=== PATIENT | female | born 1970 | race Caucasian/White ===

== ENCOUNTER → 2016-03-22 | Outpatient (REF) | payer OTHER, MEDICAID ==
[~2016-03-22] MED LIST: ACET500C PO; COLA1CAP PO; CYCL10TA PO; EFFE75CA75 PO; MIRA3350 PO; PRIM50TA2 PO; PROT1TAB2 PO; SERO1TAB2 PO; SERO1TAB3 PO; SUBO4MIS PO
[2016-03-22 16:19] LABS: ALBUMIN 3.6 GM/DL (3.2-5.2); ALBUMIN/GLOBULIN RATIO 1.38 (1.00-1.93); ALKALINE PHOSPHATASE 63 U/L (45-117); ALT/SGPT 20 U/L (12-78); ANION GAP 6 MEQ/L (8-16); AST/SGOT 24 U/L (15-37); BILIRUBIN,TOTAL 0.5 MG/DL (0.2-1.0); BLOOD UREA NITROGEN 5 MG/DL (7-18); CALCIUM LEVEL 8.8 MG/DL (8.5-10.1); CARBON DIOXIDE LEVEL 36 MEQ/L (21-32); CHLORIDE LEVEL 96 MEQ/L (98-107); FREE T4 0.82 NG/DL (0.76-1.46); GLOMERULAR FILTRATION RATE > 60.0 (>58); GLUCOSE, FASTING 81 MG/DL (70-105); SODIUM LEVEL 138 MEQ/L (136-145); TOTAL PROTEIN 6.2 GM/DL (6.4-8.2)
== END ==
LOC: M SFHCPLAZ 14:04
PROVIDERS: ATTEND Nurse Practitioner Adult Health
DX: E87.6 Hypokalemia (principal); F41.0 Panic disorder [episodic paroxysmal anxiety]

== ENCOUNTER → 2016-04-06 | Outpatient (CLI) | payer OTHER, MEDICAID ==
[~2016-04-06] MED LIST changes: -PRIM50TA2 PO; +PRIM50TA6 PO
== END ==
LOC: M PAIN 14:40
PROVIDERS: ATTEND Nurse Practitioner Family
DX: M54.81 Occipital neuralgia (principal); M79.1 Myalgia; G43.009 Migraine without aura, not intractable, without status migrainosus; M51.26 Other intervertebral disc displacement, lumbar region; F33.9 Major depressive disorder, recurrent, unspecified; F43.10 Post-traumatic stress disorder, unspecified; F41.9 Anxiety disorder, unspecified; F40.01 Agoraphobia with panic disorder; Z88.4 Allergy status to anesthetic agent; L23.0 Allergic contact dermatitis due to metals; Z79.899 Other long term (current) drug therapy; Z91.410 Personal history of adult physical and sexual abuse; Z91.5 Personal history of self-harm; Z87.891 Personal history of nicotine dependence; Z86.69 Personal history of other diseases of the nervous system and sense organs; Z86.59 Personal history of other mental and behavioral disorders; Z98.84 Bariatric surgery status

== ENCOUNTER → 2016-04-20 | Outpatient (REF) | payer OTHER | LOC: M LAB REF 16:20 | PROVIDERS: ATTEND Neurological Surgery | DX: Z01.818 Encounter for other preprocedural examination (principal) ==

== ENCOUNTER → 2016-04-24 | Outpatient (CLI) | payer OTHER, MEDICAID ==
[~2016-04-24] MED LIST changes: +BUPIVACAINE HCL 0.25% 10 ML VIAL As Ordered ONE; +BUPIVACAINE HCL 0.25% 30 ML VIAL As Ordered ONE; +BUSP15TA47 PO; +CYMB60CA3 PO; +GABA300C3 PO; +HYDR25TAB PO; +METH-107 PO; +TIZA4CAP3 PO; +TRIAMCINOLONE ACETONIDE SUSP 40 MG/ML VIAL (J3301) As Ordered ONE; +diazePAM 5 MG TAB As Ordered ONE; +oxyCODONE 5MG TAB As Ordered ONE
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
== END ==
LOC: M PAIN 09:40
PROVIDERS: ATTEND Anesthesiology
DX: G89.29 Other chronic pain (principal); M79.1 Myalgia; M54.2 Cervicalgia; M54.5 Low back pain; M25.511 Pain in right shoulder; M54.6 Pain in thoracic spine; M25.512 Pain in left shoulder; H81.09 Meniere's disease, unspecified ear; F32.9 Major depressive disorder, single episode, unspecified; F43.10 Post-traumatic stress disorder, unspecified; F40.01 Agoraphobia with panic disorder; F41.9 Anxiety disorder, unspecified; Z91.410 Personal history of adult physical and sexual abuse; F11.20 Opioid dependence, uncomplicated; Z79.899 Other long term (current) drug therapy; Z87.891 Personal history of nicotine dependence; Z88.6 Allergy status to analgesic agent; Z91.048 Other nonmedicinal substance allergy status; Z98.84 Bariatric surgery status
CPT/HCPCS: 20553; J3301

== ENCOUNTER → 2016-05-01 | Outpatient (CLI) | payer OTHER, MEDICAID ==
[~2016-05-01] MED LIST changes: -BUPIVACAINE HCL 0.25% 10 ML VIAL As Ordered ONE; -BUPIVACAINE HCL 0.25% 30 ML VIAL As Ordered ONE; -TRIAMCINOLONE ACETONIDE SUSP 40 MG/ML VIAL (J3301) As Ordered ONE; -diazePAM 5 MG TAB As Ordered ONE; -oxyCODONE 5MG TAB As Ordered ONE
--- NOTE | 2016-05-01 16:22 | REP ---
Clinical: Spondylosis . Comparison: 02/20/2016 . Technique: PA and lateral. Findings: The mediastinum and cardiac silhouette are normal. The lung downey are clear and without acute consolidation, effusion, or pneumothorax. Degenerative changes to the mid thoracic vertebral bodies with bridging osteophytes noted. Impression: 1. No acute cardiopulmonary process. Signed by Cooper Powell MD 05/01/2016 04:14 P
[2016-05-01 17:24] LABS: BASO # 0.1 K/mm3 (0.0-0.2); BASO % 0.9 % (0.0-1.0); EOS % 0.6 % (0.0-3.0); LARGE UNSTAINED CELL # 0.2 K/mm3 (0.0-0.4); LARGE UNSTAINED CELL % 2.6 % (0.0-4.0); LYMPH # 1.9 K/mm3 (1.5-4.5); LYMPH % 29.5 % (24.0-44.0); MEAN CORPUSCULAR HEMOGLOBIN 29.4 pg (27.0-33.0); MEAN CORPUSCULAR HGB CONC 31.9 g/dl (32.0-36.5); MONO # 0.4 K/mm3 (0.0-0.8); MONO % 5.6 % (0.0-5.0); NEUTROPHILS # 3.9 K/mm3 (1.8-7.7); NEUTROPHILS % 60.8 % (36.0-66.0); PLATELET COUNT, AUTOMATED 332 k/mm3 (150-450); WHITE BLOOD COUNT 6.4 K/mm3 (4.0-10.0)
[2016-05-01 17:49] LABS: INR 0.9
[2016-05-01 18:39] LABS: ALBUMIN 3.7 GM/DL (3.2-5.2); ALBUMIN/GLOBULIN RATIO 1.16 (1.00-1.93); ALKALINE PHOSPHATASE 77 U/L (45-117); ALT/SGPT 14 U/L (12-78); ANION GAP 6 MEQ/L (8-16); AST/SGOT 21 U/L (15-37); BILIRUBIN,TOTAL 0.4 MG/DL (0.2-1.0); BLOOD UREA NITROGEN 4 MG/DL (7-18); CALCIUM LEVEL 9.3 MG/DL (8.5-10.1); CARBON DIOXIDE LEVEL 35 MEQ/L (21-32); CHLORIDE LEVEL 96 MEQ/L (98-107); CREATININE FOR GFR 0.91 MG/DL (0.55-1.02); GLOMERULAR FILTRATION RATE > 60.0 (>58); GLUCOSE, FASTING 90 MG/DL (70-105); POTASSIUM SERUM 4.5 MEQ/L (3.5-5.1); SODIUM LEVEL 137 MEQ/L (136-145); TOTAL PROTEIN 6.9 GM/DL (6.4-8.2)
--- NOTE | 2016-05-01 22:33 | ECGEPIP ---
Stationary ECG Study [facility] Test Date: 2016-05-01 Pat Name: GALEN PINEDA Department: Room: - Gender: F Pediatric Cns: MIRNA : 1970 Requested By: GLORIA Barakat Order Number: [id number] Reading MD: Javed Aaron Measurements Intervals [place] Rate: 69 P: 73 WY: 121 QRS: 82 QRSD: 90 T: 70 QT: 385 QTc: 413 Interpretive Statements SINUS RHYTHM, Minor nonspecific T-wave abnormalities. No significant change compared with 02/20/2016. Electronically Signed On 05-01-2016 22:33:24 EST by Javed Aaron
== END ==
LOC: M LAB 15:42
PROVIDERS: ATTEND Neurological Surgery
DX: M47.12 Other spondylosis with myelopathy, cervical region (principal)

== ENCOUNTER → 2016-05-08 | Outpatient (CLI) | payer OTHER ==
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
== END ==
LOC: M PAIN 10:40
PROVIDERS: ATTEND Nurse Practitioner Family
DX: Z09 Encounter for follow-up examination after completed treatment for conditions other than malignant neoplasm (principal); G89.29 Other chronic pain; G56.01 Carpal tunnel syndrome, right upper limb; M54.2 Cervicalgia; M79.1 Myalgia; F33.9 Major depressive disorder, recurrent, unspecified; F43.10 Post-traumatic stress disorder, unspecified; F41.0 Panic disorder [episodic paroxysmal anxiety]; F11.20 Opioid dependence, uncomplicated; Z88.6 Allergy status to analgesic agent; L23.0 Allergic contact dermatitis due to metals; Z79.899 Other long term (current) drug therapy; Z91.410 Personal history of adult physical and sexual abuse; Z91.5 Personal history of self-harm; Z87.891 Personal history of nicotine dependence; Z86.69 Personal history of other diseases of the nervous system and sense organs; Z98.84 Bariatric surgery status

== ENCOUNTER → 2016-05-09 | Day surgery (SDC) | payer OTHER ==
[~2016-05-09] VITALS: Ht 165.1 cm; Wt 49.4 kg
[~2016-05-09] MED LIST changes: +CEFUROXIME SODIUM 1.5 GM in D5W MINI-BAG PLUS 50 ML IV ONE; +LIDOCAINE 1% MDV 20ML VIAL ONE; +LIDOCAINE 1% SDV INJ 30 ML VIAL As Ordered ONE; +LIDOCAINE 2% INJ 100 MG/5 ML SDV (FOR ANES.) As Ordered ONE; +LR 1,000 ML IV SCH; +MIDAZOLAM INJ 2 MG/2 ML VIAL (J2250) As Ordered ONE; +NORCO, ANEXSIA 5/325MG TABLET (HYDROcodone/ACETAMINOPHEN) PO PRN; +ONDANSETRON 4MG/2ML VIAL (J2405) As Ordered ONE; +ONDANSETRON 4MG/2ML VIAL (J2405) IV PRN; +PROPOFOL 200 MG/20 ML VIAL As Ordered ONE; +ROPIvacaine 0.5% 30 ML INJECTION (J2795) ONE; +dexameTHASONE 10 MG/1 ML VIAL PRES.FREE (J1100) ONE; +dexameTHASONE 4 MG/ML 1ML VIAL (J1100) IV ONE; +fentaNYL 100 MCG/2 ML INJECTION (J3010) As Ordered ONE; +methylPREDNISolone SUSP 40 MG/ML (DEPO-medrol) VIAL (J1030) As Ordered ONE; +methylPREDNISolone SUSP 40 MG/ML (DEPO-medrol) VIAL (J1030) XX ONE
[2016-05-09 07:05] LABS: CONTROL LINE UCG INT CTR LINE PRESENT
[2016-05-09] MEDS: fentaNYL 100 MCG/2 ML INJECTION (J3010) IV PRN ×4 (09:00→09:25)
--- NOTE | 2016-05-09 10:54 | RO ---
DATE OF PROCEDURE: 05/09/2016 PREOPERATIVE DIAGNOSES: Right carpal tunnel. POSTPROCEDURE DIAGNOSIS: Right carpal tunnel. SURGEON: Guilherme Tse MD TEAM FOREMAN: LÓPEZ Flores ANESTHESIA: General. PROCEDURE: Release of right carpal tunnel. FINDINGS: Nodular hypertrophy on the flexor retinaculum and adhesions of the median nerve. ESTIMATED BLOOD LOSS: Negligible (tourniquet).
[2016-05-09 11:20] VITALS: BP 103/64
--- NOTE | 2016-05-09 12:57 | RO ---
DATE OF PROCEDURE: 05/09/2016 PREPROCEDURE DIAGNOSIS: Right carpal tunnel syndrome. POSTPROCEDURE DIAGNOSIS: Right carpal tunnel syndrome. PROCEDURE: Release of the right carpal tunnel. SURGEON: Dr. Guilherme Tse SPACE PHYSICIST: Teresa Galan PA-C ANESTHESIA: General. FINDINGS: Please see my office notes for detailed preoperative evaluation and discussions. DESCRIPTION OF PROCEDURE: The patient was seen in the preoperative area with her mother. The patient and her mother were aware of all options, risks, scope, expected outcome and sequel and complications of the proposed salvage procedure. The patient understood not all of her symptoms could be readily explained on her clinical and electrodiagnostic findings. Thus all may not be addressed. She understood the risk of surgery including but not limited to , persistence or worsening of symptoms and/or deficits, loss of vital bodily functions, failure of surgery, need for multiple surgeries, infection, bleeding, development of RSD, which was explained to her on a few occasions and/or any catastrophic sequel. She again claimed there was no way she can live with these symptoms and she is willing to take any or all risk for any possible benefit and she clearly understands the salvage nature of the procedure. After all matters pertaining to surgery, anesthesia and followup care were discussed with her and mother again, she was taken to the operating room after informed consent and at her request. Once in the operative room, general anesthesia was given by the anesthesia service as the patient and the anesthesia service mutually decided to have the procedure done under general anesthesia rather than Susana block. The area of surgery was prepped and draped in the usual sterile fashion and the right upper extremity was exsanguinated using Esmarch dressing and a tourniquet was applied at 250 mmHg. A skin incision was given distal to the wrist crease, along one of the palmar creases. Alveolar layer was reached and incised, cut edges of the blood vessels were coagulated with bipolar cautery. Tendons of the palmaris longus were . Thenar and hypothenar muscles were stripped off the flexor retinaculum which was then incised in its entirety. There was nodular hypertrophic defects off the reflex retinaculum which were indenting the median nerve, The median nerve had multiple superficial scarring and adhesions that were removed. The median nerve was infiltrated with 1 mL of 40 mg Depo-Medrol and closed in two layers. The patient tolerated the procedure satisfactorily and was transferred to the recovery room in stable condition. Operative findings were discussed with the patient's mother in the waiting room. Both the patient and her mother had followup instructions.
== END ==
LOC: M SDC 06:10
PROVIDERS: ATTEND Neurological Surgery
DX: G56.01 Carpal tunnel syndrome, right upper limb (principal); K21.9 Gastro-esophageal reflux disease without esophagitis; M50.321 Other cervical disc degeneration at C4-C5 level; M50.322 Other cervical disc degeneration at C5-C6 level; M50.323 Other cervical disc degeneration at C6-C7 level; G43.909 Migraine, unspecified, not intractable, without status migrainosus; M79.606 Pain in leg, unspecified; F41.9 Anxiety disorder, unspecified; F32.9 Major depressive disorder, single episode, unspecified; K90.9 Intestinal malabsorption, unspecified; H81.09 Meniere's disease, unspecified ear; G25.0 Essential tremor; Z79.899 Other long term (current) drug therapy; Z87.891 Personal history of nicotine dependence; Z79.82 Long term (current) use of aspirin; Z79.84 Long term (current) use of oral hypoglycemic drugs; Z98.84 Bariatric surgery status; F19.10 Other psychoactive substance abuse, uncomplicated; Z88.8 Allergy status to other drugs, medicaments and biological substances; Z91.09 Other allergy status, other than to drugs and biological substances
CPT/HCPCS: 64721; 84703; J0697; J1030; J1100; J2250; J2405; J2795; J3010

== ENCOUNTER → 2016-05-22 | Outpatient (CLI) | payer OTHER ==
[~2016-05-22] MED LIST changes: -CEFUROXIME SODIUM 1.5 GM in D5W MINI-BAG PLUS 50 ML IV ONE; -LIDOCAINE 1% MDV 20ML VIAL ONE; -LIDOCAINE 1% SDV INJ 30 ML VIAL As Ordered ONE; -LIDOCAINE 2% INJ 100 MG/5 ML SDV (FOR ANES.) As Ordered ONE; -LR 1,000 ML IV SCH; -MIDAZOLAM INJ 2 MG/2 ML VIAL (J2250) As Ordered ONE; -NORCO, ANEXSIA 5/325MG TABLET (HYDROcodone/ACETAMINOPHEN) PO PRN; -ONDANSETRON 4MG/2ML VIAL (J2405) As Ordered ONE; -ONDANSETRON 4MG/2ML VIAL (J2405) IV PRN; -PROPOFOL 200 MG/20 ML VIAL As Ordered ONE; -ROPIvacaine 0.5% 30 ML INJECTION (J2795) ONE; -dexameTHASONE 10 MG/1 ML VIAL PRES.FREE (J1100) ONE; -dexameTHASONE 4 MG/ML 1ML VIAL (J1100) IV ONE; -fentaNYL 100 MCG/2 ML INJECTION (J3010) As Ordered ONE; -methylPREDNISolone SUSP 40 MG/ML (DEPO-medrol) VIAL (J1030) As Ordered ONE; -methylPREDNISolone SUSP 40 MG/ML (DEPO-medrol) VIAL (J1030) XX ONE
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
== END ==
LOC: M PAIN 10:40
PROVIDERS: ATTEND Nurse Practitioner Family
DX: Z09 Encounter for follow-up examination after completed treatment for conditions other than malignant neoplasm (principal); G89.29 Other chronic pain; G56.01 Carpal tunnel syndrome, right upper limb; M54.2 Cervicalgia; M79.1 Myalgia; F32.9 Major depressive disorder, single episode, unspecified; F43.10 Post-traumatic stress disorder, unspecified; F41.0 Panic disorder [episodic paroxysmal anxiety]; F11.20 Opioid dependence, uncomplicated; Z79.1 Long term (current) use of non-steroidal anti-inflammatories (NSAID); L23.0 Allergic contact dermatitis due to metals; Z79.899 Other long term (current) drug therapy; Z91.410 Personal history of adult physical and sexual abuse; Z87.891 Personal history of nicotine dependence; Z91.5 Personal history of self-harm; Z79.891 Long term (current) use of opiate analgesic

== ENCOUNTER → 2016-06-19 | Outpatient (CLI) | payer OTHER ==
[~2016-06-19] MED LIST changes: -COLA1CAP PO; +COLA50CA5 PO; +GABA-282 PO; -GABA300C3 PO
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
== END | disposition home or self-care (01) ==
LOC: M PAIN 14:20
PROVIDERS: ATTEND Nurse Practitioner Family
DX: G89.29 Other chronic pain (principal); G56.01 Carpal tunnel syndrome, right upper limb; M54.2 Cervicalgia; M79.1 Myalgia; F41.9 Anxiety disorder, unspecified; F43.10 Post-traumatic stress disorder, unspecified; F33.9 Major depressive disorder, recurrent, unspecified; Z98.84 Bariatric surgery status; F11.21 Opioid dependence, in remission; Z88.8 Allergy status to other drugs, medicaments and biological substances; Z91.048 Other nonmedicinal substance allergy status; Z87.891 Personal history of nicotine dependence

== ENCOUNTER → 2016-07-31 | Outpatient (CLI) | payer OTHER ==
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
== END | disposition home or self-care (01) ==
LOC: M PAIN 14:00
PROVIDERS: ATTEND Nurse Practitioner Family
DX: G89.29 Other chronic pain (principal); M79.1 Myalgia; M50.223 Other cervical disc displacement at C6-C7 level; G56.01 Carpal tunnel syndrome, right upper limb; F33.9 Major depressive disorder, recurrent, unspecified; F43.10 Post-traumatic stress disorder, unspecified; F41.9 Anxiety disorder, unspecified; H81.09 Meniere's disease, unspecified ear; Z79.899 Other long term (current) drug therapy; Z79.891 Long term (current) use of opiate analgesic; Z88.8 Allergy status to other drugs, medicaments and biological substances; L23.0 Allergic contact dermatitis due to metals; Z87.891 Personal history of nicotine dependence

== ENCOUNTER → 2016-08-20 | Outpatient (CLI) | payer OTHER ==
[~2016-08-20] MED LIST changes: +ISOVUE-M 300 61% 15ML VIAL (Q9967) As Ordered ONE; +LIDOCAINE 1% SDV INJ 30 ML VIAL As Ordered ONE; +diazePAM 5 MG TAB As Ordered ONE; +methylPREDNISolone SUSP 40 MG/ML (DEPO-medrol) VIAL (J1030) As Ordered ONE; +oxyCODONE 5MG TAB As Ordered ONE
--- NOTE | 2016-08-20 14:45 | REP ---
FLUORO GUIDED SPINAL INJECTION: The images were reviewed with Dr. Quiñonez. The patient has a history of neck pain. The portable C-arm is provided in the OR for Dr. Ball for fluoroscopic guidance. Two intraoperative fluoroscopic spot films are obtained for needle placement verification for cervical epidural injection. The films are on the PACS system and are available for review. 15 seconds of fluoroscopy time was utilized for this procedure. Reviewed by CAITIE Cohn 08/20/2016 05:04 PEdited and Signed by Mehdi Quiñonez MD 08/20/2016 05:15 P
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
== END | disposition home or self-care (01) ==
LOC: M PAIN 10:20
PROVIDERS: ATTEND Anesthesiology
DX: G89.29 Other chronic pain (principal); M50.13 Cervical disc disorder with radiculopathy, cervicothoracic region; F33.9 Major depressive disorder, recurrent, unspecified; F43.10 Post-traumatic stress disorder, unspecified; F41.9 Anxiety disorder, unspecified; H81.09 Meniere's disease, unspecified ear; Z98.84 Bariatric surgery status; Z88.8 Allergy status to other drugs, medicaments and biological substances; L23.0 Allergic contact dermatitis due to metals; Z79.899 Other long term (current) drug therapy

== ENCOUNTER → 2016-08-29 | Outpatient (CLI) | payer OTHER ==
[~2016-08-29] MED LIST changes: +ACET50TAOT PO; +BUSP10TA PO; +CLONI1TA PO; +DYAZ37.5 PO; +GABA600T PO; -METH-107 PO; +METH1TAB40 PO; +MIDO2.5T PO; +MULTLIQ7 PO; +QUET1TAB8 PO; +QUET400T PO; +RIZA10TA2 PO; -SUBO4MIS PO; +SUBO4MIS SL; +SUBO8MIS SL; +ULTR50TA8 PO; +ZANA4TAB PO
--- NOTE | 2016-08-29 16:48 | REP ---
FLUOROSCOPIC GUIDED SPINAL INJECTION: The films were reviewed with Dr. Quiñonez. The patient has a history of back pain. The portable C-ARM was provided in the OR by Dr. Ball for fluoroscopic guidance. 2 intraoperative fluoroscopic spot films were obtained for needle placement verification for lumbar epidural injection. The films are on the PACS system and are available for review. 11 seconds of fluoroscopic time was utilized for this procedure. Reviewed by CAITIE Cohn 08/29/2016 04:51 PEdited and Signed by Mehdi Quiñonez MD 08/30/2016 05:18 P
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
== END | disposition home or self-care (01) ==
LOC: M PAIN 11:00
PROVIDERS: ATTEND Nurse Practitioner Family
DX: G89.29 Other chronic pain (principal); M51.17 Intervertebral disc disorders with radiculopathy, lumbosacral region; F33.9 Major depressive disorder, recurrent, unspecified; Z87.891 Personal history of nicotine dependence; F43.10 Post-traumatic stress disorder, unspecified; F41.0 Panic disorder [episodic paroxysmal anxiety]; F11.20 Opioid dependence, uncomplicated; H81.09 Meniere's disease, unspecified ear; Z88.8 Allergy status to other drugs, medicaments and biological substances; L23.0 Allergic contact dermatitis due to metals; Z79.899 Other long term (current) drug therapy

== ENCOUNTER → 2016-09-18 | Outpatient (CLI) | payer OTHER ==
[~2016-09-18] MED LIST changes: -ISOVUE-M 300 61% 15ML VIAL (Q9967) As Ordered ONE; -LIDOCAINE 1% SDV INJ 30 ML VIAL As Ordered ONE; -diazePAM 5 MG TAB As Ordered ONE; -methylPREDNISolone SUSP 40 MG/ML (DEPO-medrol) VIAL (J1030) As Ordered ONE; -oxyCODONE 5MG TAB As Ordered ONE
--- NOTE | 2016-09-18 16:04 | REPMRS ---
Patient History The patient states she had a clinical breast exam in 09/2016. Patient is nulliparous. Family history of breast cancer in maternal aunt, breast cancer in paternal grandmother, and colorectal cancer in maternal uncle. Digital Woman Screen Mammo: September 18, 2016 - Exam #: [id number] Bilateral CC and MLO view(s) were taken. Technologist: Cassandra Hernandez, Technologist Prior study comparison: May 27, 2015, left breast digital mammo diagnostic unilateral, performed at [facility]. May 17, 2015, bilateral digital mammo screening bilat, performed at [facility]. FINDINGS: There are scattered fibroglandular densities. There has been no change in the appearance of the mammogram from the prior studies. There is a mild amount of residual fibroglandular tissue which is fairly symmetric. There is no interval development of dominant mass, architectural distortion, or clustered microcalcification suggestive of malignancy. ASSESSMENT: BI-RADS/ACR category 1 mammogram. Negative. Recommendation Routine screening mammogram in 1 year (for women over age 40). This mammogram was interpreted with the aid of an FDA-approved computer-aided dectection system. Electronically Signed By: Mehdi Quiñonez MD 09/18/16 5208
== END ==
LOC: M WHC 13:56
PROVIDERS: ATTEND Nurse Practitioner Family
DX: Z12.31 Encounter for screening mammogram for malignant neoplasm of breast (principal)

== ENCOUNTER → 2016-09-19 | Outpatient (REF) | payer OTHER | LOC: M SFHCWAGY 08:36 | PROVIDERS: ATTEND Nurse Practitioner Family | DX: Z12.4 Encounter for screening for malignant neoplasm of cervix (principal) ==

== ENCOUNTER → 2016-09-25 | Outpatient (CLI) | payer OTHER ==
--- NOTE | 2016-09-25 14:36 | REP ---
TRANSVAGINAL PELVIC SONOGRAPHY: HISTORY: Right lower quadrant pain. Comparison CT study is from a 07/21/2015. History of left ectopic treated surgically. Right ectopic treated medically with methotrexate. FINDINGS: Uterine dimensions are normal at 6.0 x 1.9 x 3.1 cm. Endometrial echo 0.2 cm thick. The left ovary measures 2.8 x 1.6 x 1.9 cm. There are three a follicle cysts in the left ovary the largest of which measures 1.6 cm in greatest diameter. Right ovary dimensions are 2.2 x 1.0 x 1.2 cm. In the right adnexa there are two small oval shaped cystic areas question hydrosalpinx. The largest of these measures 1.4 x 0.9 x 0.9 cm. Adjacent to the ovary in the right adnexa is a 2.1 x 1.5 x 1.7 cm heterogeneous solid appearing area. Peristalsing bowel is seen surrounding this and real time sonography. This is of uncertain significance. IMPRESSION: 1. Question right-sided hydrosalpinx. 2. 2.1 cm possible solid mass in the right adnexa adjacent to the ovary.
== END ==
LOC: M WHC 10:50
PROVIDERS: ATTEND Nurse Practitioner Family
DX: R10.2 Pelvic and perineal pain (principal)

== ENCOUNTER → 2016-09-26 | Outpatient (REF) | payer OTHER | LOC: M SFHCWAGY 12:56 | PROVIDERS: ATTEND Nurse Practitioner Adult Health | DX: N94.9 Unspecified condition associated with female genital organs and menstrual cycle (principal) ==

== ENCOUNTER → 2016-09-27 | Outpatient (REF) | payer OTHER ==
[2016-09-27 18:03] LABS: MEAN CORPUSCULAR HEMOGLOBIN 32.2 pg (27.0-33.0); MEAN CORPUSCULAR HGB CONC 34.5 g/dl (32.0-36.5); MEAN CORPUSCULAR VOLUME 93.2 fl (80.0-96.0); RED CELL DISTRIBUTION WIDTH 14.2 % (11.5-14.5); WHITE BLOOD COUNT 4.6 K/mm3 (4.0-10.0)
[2016-09-27 18:09] LABS: VITAMIN B12 LEVEL 238 PG/ML (247-911)
[2016-09-27 18:29] LABS: ALBUMIN 3.1 GM/DL (3.2-5.2); ALKALINE PHOSPHATASE 80 U/L (45-117); ALT/SGPT 15 U/L (12-78); ANION GAP 9 MEQ/L (8-16); AST/SGOT 13 U/L (15-37); BILIRUBIN,TOTAL 0.4 MG/DL (0.2-1.0); BLOOD UREA NITROGEN 3 MG/DL (7-18); CALCIUM LEVEL 8.8 MG/DL (8.5-10.1); CARBON DIOXIDE LEVEL 33 MEQ/L (21-32); CHLORIDE LEVEL 92 MEQ/L (98-107); CHOLESTEROL LEVEL 191 MG/DL (<200); CREATININE FOR GFR 0.84 MG/DL (0.55-1.02); FERRITIN 100 NG/ML (8-252); GLOMERULAR FILTRATION RATE > 60.0 (>58); GLUCOSE, FASTING 122 MG/DL (70-105); MAGNESIUM LEVEL 1.9 MG/DL (1.8-2.4); PERCENT SATURATION 41.9 % (13.2-37.4); POTASSIUM SERUM 3.4 MEQ/L (3.5-5.1); SODIUM LEVEL 134 MEQ/L (136-145); TOTAL IRON BINDING CAPACITY 229 UG/DL (250-450); TOTAL PROTEIN 6.2 GM/DL (6.4-8.2); TRIGLYCERIDES LEVEL 91 MG/DL (<150)
[2016-09-28 08:27] LABS: CA 125 2.6 U/ML (<30.2)
== END ==
LOC: M LABDRAWP 15:52
PROVIDERS: ATTEND Nurse Practitioner Adult Health
DX: Z00.00 Encounter for general adult medical examination without abnormal findings (principal); Z98.84 Bariatric surgery status

== ENCOUNTER → 2016-10-11 | Outpatient (CLI) | payer OTHER ==
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
== END | disposition home or self-care (01) ==
LOC: M PAIN 11:00
PROVIDERS: ATTEND Nurse Practitioner Family
DX: G89.29 Other chronic pain (principal); M79.1 Myalgia; M50.223 Other cervical disc displacement at C6-C7 level; M51.26 Other intervertebral disc displacement, lumbar region; F33.9 Major depressive disorder, recurrent, unspecified; Z87.891 Personal history of nicotine dependence; F43.10 Post-traumatic stress disorder, unspecified; F41.0 Panic disorder [episodic paroxysmal anxiety]; F11.20 Opioid dependence, uncomplicated; H81.09 Meniere's disease, unspecified ear; Z88.8 Allergy status to other drugs, medicaments and biological substances; L23.0 Allergic contact dermatitis due to metals; Z79.899 Other long term (current) drug therapy

== ENCOUNTER → 2016-10-24 | Outpatient (CLI) | payer OTHER ==
[~2016-10-24] MED LIST changes: +BUPIVACAINE HCL 0.25% 10 ML VIAL As Ordered ONE; +BUPIVACAINE HCL 0.25% 30 ML VIAL As Ordered ONE; +TRIAMCINOLONE ACETONIDE SUSP 40 MG/ML VIAL (J3301) As Ordered ONE; +diazePAM 5 MG TAB As Ordered ONE; +oxyCODONE 5MG TAB As Ordered ONE
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
== END | disposition home or self-care (01) ==
LOC: M PAIN 11:30
PROVIDERS: ATTEND Anesthesiology
DX: G89.29 Other chronic pain (principal); M79.1 Myalgia; F33.9 Major depressive disorder, recurrent, unspecified; Z87.891 Personal history of nicotine dependence; F43.10 Post-traumatic stress disorder, unspecified; F41.0 Panic disorder [episodic paroxysmal anxiety]; F11.20 Opioid dependence, uncomplicated; H81.09 Meniere's disease, unspecified ear; Z88.8 Allergy status to other drugs, medicaments and biological substances; L23.0 Allergic contact dermatitis due to metals; Z79.899 Other long term (current) drug therapy
CPT/HCPCS: 20552; J3301

== ENCOUNTER 2016-11-02 11:34 | Day surgery (SDC) | payer OTHER ==
[~2016-11-02] VITALS: Ht 165.1 cm; Wt 47.6 kg
[~2016-11-02 11:34] MED LIST changes: -BUPIVACAINE HCL 0.25% 10 ML VIAL As Ordered ONE; -BUPIVACAINE HCL 0.25% 30 ML VIAL As Ordered ONE; -BUSP10TA PO; -CLONI1TA PO; -DYAZ37.5 PO; -GABA600T PO; -MIDO2.5T PO; -MULTLIQ7 PO; -QUET1TAB8 PO; -QUET400T PO; -RIZA10TA2 PO; -SUBO8MIS SL; -TRIAMCINOLONE ACETONIDE SUSP 40 MG/ML VIAL (J3301) As Ordered ONE; -ULTR50TA8 PO; -ZANA4TAB PO; -diazePAM 5 MG TAB As Ordered ONE; -oxyCODONE 5MG TAB As Ordered ONE
[2016-11-02] MEDS ORDERED: LR 1,000 ML IV ONE (11:45)
[2016-11-02] MEDS ORDERED: LR 1,000 ML IV SCH ×3 (11:45→16:45)
[2016-11-02 12:06] LABS: MEAN CORPUSCULAR HEMOGLOBIN 30.8 pg (27.0-33.0); MEAN CORPUSCULAR HGB CONC 32.8 g/dl (32.0-36.5); MEAN CORPUSCULAR VOLUME 93.8 fl (80.0-96.0); RED CELL DISTRIBUTION WIDTH 14.4 % (11.5-14.5); WHITE BLOOD COUNT 5.4 K/mm3 (4.0-10.0)
[2016-11-02 12:10] LABS: CONTROL LINE HCG INT CTR LINE PRESENT
[2016-11-02] MEDS ORDERED: SILVER NITRATE APPLICATOR As Ordered ONE (13:36)
[2016-11-02] MEDS ORDERED: BUPIVACAINE HCL 0.25% 10 ML VIAL As Ordered ONE (13:37)
[2016-11-02] MEDS ORDERED: fentaNYL 100 MCG/2 ML INJECTION (J3010) As Ordered ONE (13:50)
[2016-11-02] MEDS ORDERED: MIDAZOLAM INJ 2 MG/2 ML VIAL (J2250) As Ordered ONE (13:50)
[2016-11-02] MEDS ORDERED: LIDOCAINE 2% INJ 100 MG/5 ML SDV (FOR ANES.) As Ordered ONE (15:09)
[2016-11-02] MEDS ORDERED: ROCURONIUM BROMIDE 50 MG/5 ML VIAL/SYRINGE As Ordered ONE (15:09)
[2016-11-02] MEDS ORDERED: ePHEDrine SULFATE 25 MG/5 ML(5MG/ML) SYRINGE As Ordered ONE (15:09)
[2016-11-02] MEDS ORDERED: PROPOFOL 200 MG/20 ML VIAL As Ordered ONE ×2 (15:09→16:08)
[2016-11-02] MEDS ORDERED: PHENYLephrine HCL 500 MCG/5 ML (100MCG/ML) SYRINGE (J2370) As Ordered ONE (15:10)
[2016-11-02] MEDS ORDERED: ONDANSETRON 4MG/2ML VIAL (J2405) As Ordered ONE (15:10)
[2016-11-02] MEDS ORDERED: HYDROmorphone HCL 2 MG/ML 1ML VIAL (J1170) As Ordered ONE (15:10)
[2016-11-02] MEDS ORDERED: dexameTHASONE 4 MG/ML 1ML VIAL (J1100) As Ordered ONE ×2 (15:10→15:45)
[2016-11-02] MEDS ORDERED: GLYCOPYRROLATE INJ 0.2 MG/ML 2 ML VIAL As Ordered ONE (15:42)
[2016-11-02] MEDS ORDERED: NEOSTIGMINE 1MG/ML 5 ML SYRINGE (J2710) As Ordered ONE (15:42)
[2016-11-02] MEDS: PERCOCET 5MG/325MG TAB PO PRN ×2 (16:44→17:15)
[2016-11-02] MEDS: HYDROmorphone HCL 1 MG/ML SYRINGE (J1170) IV PRN ×5 (16:44→17:05)
[2016-11-02] MEDS ORDERED: ONDANSETRON 4MG/2ML VIAL (J2405) IV PRN (16:45)
[2016-11-02] MEDS ORDERED: ULTR50TA8 PO (16:52)
[2016-11-02] MEDS: fentaNYL 100 MCG/2 ML INJECTION (J3010) IV PRN ×4 (17:10→17:27)
[2016-11-02 18:45] VITALS: BP 97/56
--- NOTE | 2016-11-04 10:19 | RO ---
DATE OF PROCEDURE: 11/02/2016 PREOPERATIVE DIAGNOSES: Chronic pelvic pain, right adnexal masses. POSTOPERATIVE DIAGNOSES: Chronic pelvic pain, right adnexal masses, right paratubal cyst and right subserosal pedunculated fibroid (posterior). PROCEDURES PERFORMED: Laparoscopic myomectomy and laparoscopic paratubal cystectomy. SURGEON: Rojelio Mcgregor DO WEAVING SUPERVISOR: Elizabeth Issa MD ANESTHESIA: General endotracheal. SPECIMENS TO PATHOLOGY: 1. Right paratubal cyst. 2. Subserosal pedunculated leiomyoma. ESTIMATED BLOOD LOSS: 5 mL. FLUIDS REPLACED: 1 liter of lactated Ringer's. DRAINS: Abarca catheter, 100 mL urine output during the procedure. COMPLICATIONS: None. PREOPERATIVE ANTIBIOTIC: None indicated. INTRAOPERATIVE FINDINGS: Right paratubal cyst, right subserosal posterior pedunculated fibroid approximately 2 cm in greatest dimension. Otherwise, normal appearing uterus, otherwise normal appearing adnexa and normal appearing ovaries bilaterally. Minimal pelvic adhesive disease. There were some upper abdominal adhesions from her previous surgeries but no pelvic adhesions. Of note, there was an incidental uterine perforation that was non bleeding that was noted to be caused by the uterine manipulator. Again this was a non bleeding perforation. INDICATION: 46-year-old with a longstanding history of right-sided chronic pelvic. Recent pelvic ultrasonography revealed two right sided masses; one solid and one cystic. Given this finding, the patient desired removal of these masses in an effort to treat her chronic right-sided pelvic pain. DESCRIPTION OF PROCEDURE: The patient was counseled and consented on risks, benefits, indications, alternatives of procedure. Informed consent was obtained. She was taken to the operating room with an IV running, placed on an operating table in dorsal supine position. General anesthesia was administered and airway secured without any difficulty. She was placed in low lithotomy position. She was prepared and draped in a normal sterile fashion. Time-out was performed per protocol. Attention was turned to the pelvis. Abarca catheter was placed under sterile conditions. Sterile speculum placed with good visualization of the cervix. The anterior lip of the cervix was grasped with single-tooth tenaculum and downward traction was applied. The uterus sounded to 6 cm. The cervix was then sequentially dilated with Eliseo dilators up to #16. It was noted at this time a possible fundal perforation given the small size of the uterus. Instead of using the Zumi uterine manipulator, a sponge stick was placed instead and tied to the single-tooth tenaculum for uterine manipulation. All the rest of the instruments were removed from the vagina. Attention was then turned to the abdomen. A glove switch was performed. 5 mL of 0.25% Marcaine were injected into the umbilicus. A 5 mm incision was made in the umbilicus and through this incision, a Veress needle was placed into the intra-abdominally cavity. Intra-abdominal placement was confirmed with ease of flow of normal saline, negative return on aspiration and a positive drop test. Opening pressure was 3 mmHg. The abdomen was insufflated 2 liters gas. Veress needle was removed. The 5 mm XL laparoscopic trocar was placed into the anterior abdominal cavity without any incidental bleeding or injury. The patient was then placed in steep Trendelenburg. The abdomen and pelvis were examined with findings noted above. Two additional lower abdominal laparoscopic port sites were placed, each 5 mm incisions, 2 cm superior and 2 cm medial to the anterior superior iliac spine. Through these 5 mm incisions, 5 mm XL laparoscopic trocars were placed under direct visualization without any difficulty. Once this was performed, the decision made to switch out the umbilical cannula for a larger cannula so that the EndoCatch bag could be placed so that the leiomyoma could be brought out of the abdomen. The incision was extended to 10 mm. The trocar was removed. The size 11 mm XL laparoscopic trocar was placed under direct visualization without any difficulty. The LigaSure device was used to excise in sequential fashion through clamping, coagulation and transection the right paratubal cyst. The right paratubal cyst was brought through the right-sided 5 mm cannula and the right fallopian tube was noted be hemostatic. The right subserosal posterior pedunculated fibroid was then grasped and the stalk was isolated and identified. Using the 5 mm LigaSure device. The 5 mm LigaSure device was sequentially clamped, coagulated and transected the pedunculation at the level of the uterine serosa. The entire stalk was noted to be excised, thus amputating the fibroid from its stalk. The excisional site was noted to be completely hemostatic. The fibroid was placed in the anterior cul-de-sac. The 10 mm scope was replaced with the 5 mm scope and placed in the left sided side port. The EndoCatch device was placed through the 11 mm cannula and the fibroid was placed in EndoCatch bag and then removed from the abdomen in typical fashion without any difficulty. The 11 mm cannula was then replaced back into the abdomen. The abdomen and pelvis were inspected and noted to be completely hemostatic. At this point, nothing else was to be done. No additional pathology was visualized. No bleeding from the incidental uterine perforation site was noted. The decision was made to conclude the procedure. The gas was released from the abdomen. As the gas was being released from the abdomen, the surgical sites were inspected and noted to remain hemostatic. The 11 mm cannula was replaced with the Mingo-Igor trocar. The Mingo-Igor technique was used to close the fascia at the 11 mm site with the 0 Vicryl. The cannulas were then removed as the gas was released from the abdomen. After the gas was released from the abdomen, the skin incisions were closed with #4-0 Monocryl in subcuticular fashion and reinforced with Dermabond. The sponge, lap, needle and sponge counts were correct. Attention was turned back to the pelvis. The sponge stick and the single-tooth tenaculum were removed. The speculum was placed and the cervix was noted to be hemostatic. All instruments were removed from the vagina. Abarca catheter was removed. Sponge, lap, needle and sponge counts were again correct, thus concluding the procedure. The patient tolerated the entire procedure well. She was transferred to the postanesthesia care unit in good stable condition.
== END 2016-11-02 18:55 | disposition home or self-care (01) ==
LOC: M SDC 11:34
PROVIDERS: ATTEND Obstetrics & Gynecology
DX: D25.2 Subserosal leiomyoma of uterus (principal); N83.8 Other noninflammatory disorders of ovary, fallopian tube and broad ligament; N99.71 Accidental puncture and laceration of a genitourinary system organ or structure during a genitourinary system procedure; K21.9 Gastro-esophageal reflux disease without esophagitis; F41.9 Anxiety disorder, unspecified; F32.9 Major depressive disorder, single episode, unspecified; G43.909 Migraine, unspecified, not intractable, without status migrainosus; F60.3 Borderline personality disorder; M46.1 Sacroiliitis, not elsewhere classified; M47.816 Spondylosis without myelopathy or radiculopathy, lumbar region; M54.81 Occipital neuralgia; M47.12 Other spondylosis with myelopathy, cervical region; H81.02 Meniere's disease, left ear; H81.90 Unspecified disorder of vestibular function, unspecified ear; M19.90 Unspecified osteoarthritis, unspecified site; R25.1 Tremor, unspecified; R63.0 Anorexia; Z92.21 Personal history of antineoplastic chemotherapy; Z88.8 Allergy status to other drugs, medicaments and biological substances; Z91.09 Other allergy status, other than to drugs and biological substances; Z79.899 Other long term (current) drug therapy; Z98.84 Bariatric surgery status; Z87.891 Personal history of nicotine dependence

== ENCOUNTER → 2016-11-16 | Outpatient (CLI) | payer OTHER ==
[~2016-11-16] MED LIST changes: +BUSP10TA PO; +CLONI1TA PO; +DYAZ37.5 PO; +GABA600T PO; +MIDO2.5T PO; +MULTLIQ7 PO; +QUET1TAB8 PO; +QUET400T PO; +RIZA10TA2 PO; +SUBO8MIS SL; +ULTR50TA8 PO; +ZANA4TAB PO
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
== END ==
LOC: M PAIN 09:45
PROVIDERS: ATTEND Nurse Practitioner Family
DX: M54.2 Cervicalgia (principal); M79.1 Myalgia; M51.26 Other intervertebral disc displacement, lumbar region; Z79.899 Other long term (current) drug therapy; Z88.6 Allergy status to analgesic agent; Z91.09 Other allergy status, other than to drugs and biological substances; Z79.84 Long term (current) use of oral hypoglycemic drugs

== ENCOUNTER 2016-12-15 16:26 | Inpatient (IN) | payer MEDICAID, OTHER ==
[~2016-12-15] VITALS: Ht 165.1 cm; Wt 56.0 kg
[~2016-12-15 16:26] MED LIST changes: -BUSP10TA PO; -CLONI1TA PO; -DYAZ37.5 PO; -GABA600T PO; -MIDO2.5T PO; -MULTLIQ7 PO; -QUET1TAB8 PO; -QUET400T PO; -RIZA10TA2 PO; -SUBO8MIS SL; -ZANA4TAB PO
[2016-12-15] MEDS ORDERED: NS 500 ML IV ONE ×2 (16:45→18:15)
[2016-12-15 17:17] LABS: BASO % 0.8 % (0.0-1.0); EOS # 0.1 10^3/uL (0.0-0.50); EOS % 3.5 % (0.0-3.0); IMMATURE GRANULOCYTE % 0.5 % (0-0); LYMPH # 1.9 10^3/uL (1.5-4.5); MEAN CORPUSCULAR HEMOGLOBIN 30.6 pg (27.0-33.0); MEAN CORPUSCULAR HGB CONC 33.1 g/dl (32.0-36.5); MEAN CORPUSCULAR VOLUME 92.3 fl (80.0-96.0); MONO # 0.3 10^3/uL (0.0-0.8); NEUTROPHILS # 1.6 10^3/uL (1.8-7.7); NEUTROPHILS % 40.2 % (36.0-66.0); PLATELET COUNT, AUTOMATED 181 10^3/uL (150-450); RED CELL DISTRIBUTION WIDTH 13.2 % (11.5-14.5)
[2016-12-15 17:36] LABS: ANION GAP 1 MEQ/L (8-16); BLOOD UREA NITROGEN 4 MG/DL (7-18); CALCIUM LEVEL 7.7 MG/DL (8.5-10.1); CARBON DIOXIDE LEVEL 39 MEQ/L (21-32); CHLORIDE LEVEL 97 MEQ/L (98-107); CREATININE FOR GFR 0.81 MG/DL (0.55-1.02); GLOMERULAR FILTRATION RATE > 60.0 (>58); GLUCOSE, FASTING 102 MG/DL (70-105); POTASSIUM SERUM 3.2 MEQ/L (3.5-5.1); SODIUM LEVEL 137 MEQ/L (136-145)
[2016-12-15] MEDS ORDERED: METOCLOPRAMIDE INJ 10MG/2ML VIAL (J2765) As Ordered ONE (18:17)
--- NOTE | 2016-12-15 18:20 | REPUSA ---
CT of the head Clinical history: Headache. Technique: Multiple axial CT images were obtained through the head without administration of contrast . Findings: The ventricles and sulci are symmetric bilaterally. There is no evidence of acute hemorrhag e or infarct. There is no midline shift, mass effect, or extra-axial fluid collection. The osseous st ructures are unremarkable. The visualized paranasal sinuses and mastoid air cells are clear. Impression: Negative study.
[2016-12-15] MEDS ORDERED: METOCLOPRAMIDE INJ 10MG/2ML VIAL (J2765) IV ONE (18:30)
--- NOTE | 2016-12-15 18:30 | REPUSA ---
CT of the cervical spine Clinical history: Pain. Technique: Multiple axial CT images were obtained through the cervical spine without administration o f contrast. Coronal and sagittal 3-D reconstructed images were also obtained. Comparison: None. Findings: The cervical vertebral bodies are in satisfactory positioning and alignment. No fractures or dislocat ions are demonstrated. The odontoid process is intact. Intervertebral disc spaces are well-maintained . There are minimal disc osteophyte complexes at C5/C6 and C6/C7. There is no evidence of facet sublu xation. The neural foramen appear grossly patent. The cervical cranial junction is intact. The cervic al spinal canal demonstrates normal caliber and contour without evidence of spinal stenosis. The surr ounding soft tissues are within normal limits. Impression: No acute findings. Mild disc osteophyte complexes at C5/C6 and C6/C7.
[2016-12-15] MEDS ORDERED: POTASSIUM CHLORIDE 10% LIQ 20 MEQ/15 ML UDC PO ONE (19:15)
[2016-12-15] MEDS ORDERED: CLONI1TA PO (19:44)
[2016-12-15] MEDS ORDERED: BUSP10TA PO (19:44)
[2016-12-15] MEDS ORDERED: ZANA4TAB PO (19:44)
[2016-12-15] MEDS ORDERED: RIZA10TA2 PO (19:44)
[2016-12-15] MEDS ORDERED: GABA600T PO (19:44)
[2016-12-15] MEDS ORDERED: QUET400T PO (19:44)
[2016-12-15] MEDS ORDERED: DYAZ37.5 PO (19:44)
[2016-12-15] MEDS ORDERED: SUBO8MIS SL (19:46)
[2016-12-15] MEDS ORDERED: ACETAMINOPHEN 500 MG TAB PO PRN (20:45)
[2016-12-15] MEDS ORDERED: QUEtiapine FUMARATE 25 MG TAB PO PRN (20:45)
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
[2016-12-15] MEDS ORDERED: NS 1,000 ML IV SCH (21:30)
[2016-12-15 22:20] VITALS: BP_SYST 69; BP_SYST 72; BP_SYST 99; BP_DIAS 48; BP_DIAS 54
[2016-12-15] MEDS: PRIMIDONE 50 MG TAB PO SCH (23:35)
[2016-12-15] MEDS: QUEtiapine FUMARATE 200 MG TAB PO SCH (23:35)
[2016-12-15] MEDS: NS 1,000 ML IV SCH (23:35)
[2016-12-15] MEDS: METHOCARBAMOL 500 MG TAB PO SCH (23:35)
[2016-12-15] MEDS: tiZANidine 4 MG TAB PO SCH (23:36)
[2016-12-15] MEDS: busPIRone 10 MG TAB PO SCH (23:36)
[2016-12-15] MEDS: DULoxetine 30 MG CAP (CYMBALTA) PO SCH (23:44)
[2016-12-15] MEDS: HEPARIN SOD (PORCINE) 5000 UNITS/ML VIAL SC SCH (23:44)
[2016-12-15] MEDS: PANTOPRAZOLE 40MG TAB (PROTONIX) PO SCH (23:44)
[2016-12-15] MEDS: GABAPENTIN 300 MG CAP PO SCH (23:44)
[2016-12-15] MEDS: BUPRENORPHINE/NALOXONE 2-0.5MG SUBLINGUAL TABLET(SUBOXONE) SL SCH (23:45)
[2016-12-16] VITALS (9 sets, daily range): BP systolic 66–102; BP diastolic 38–66
[2016-12-16] MEDS: NS 1,000 ML IV SCH ×4 (00:12→22:08)
[2016-12-16] MEDS ORDERED: NS 1,000 ML IV ONE ×2 (00:15→03:00)
[2016-12-16 05:46] LABS: BASO % 0.6 % (0.0-1.0); EOS # 0.1 10^3/uL (0.0-0.50); EOS % 3.8 % (0.0-3.0); IMMATURE GRANULOCYTE % 0.3 % (0-0); LYMPH # 1.9 10^3/uL (1.5-4.5); LYMPH % 56.1 % (24.0-44.0); MEAN CORPUSCULAR HEMOGLOBIN 30.2 pg (27.0-33.0); MEAN CORPUSCULAR HGB CONC 31.8 g/dl (32.0-36.5); MEAN CORPUSCULAR VOLUME 94.8 fl (80.0-96.0); MONO # 0.2 10^3/uL (0.0-0.8); MONO % 6.1 % (0.0-5.0); NEUTROPHILS # 1.1 10^3/uL (1.8-7.7); NEUTROPHILS % 33.1 % (36.0-66.0); PLATELET COUNT, AUTOMATED 139 10^3/uL (150-450); RED CELL DISTRIBUTION WIDTH 13.4 % (11.5-14.5); WHITE BLOOD COUNT 3.4 10^3/uL (4.0-10.0)
[2016-12-16 06:02] LABS: ANION GAP 2 MEQ/L (8-16); BLOOD UREA NITROGEN 3 MG/DL (7-18); CALCIUM LEVEL 7.4 MG/DL (8.5-10.1); CARBON DIOXIDE LEVEL 35 MEQ/L (21-32); CHLORIDE LEVEL 107 MEQ/L (98-107); CREATININE FOR GFR 0.74 MG/DL (0.55-1.02); GLOMERULAR FILTRATION RATE > 60.0 (>58); GLUCOSE, FASTING 100 MG/DL (70-105); POTASSIUM SERUM 4.1 MEQ/L (3.5-5.1); SODIUM LEVEL 144 MEQ/L (136-145)
[2016-12-16] MEDS: busPIRone 10 MG TAB PO SCH ×2 (09:31→22:07)
[2016-12-16] MEDS: DULoxetine 30 MG CAP (CYMBALTA) PO SCH ×2 (09:31→22:08)
[2016-12-16] MEDS: GABAPENTIN 300 MG CAP PO SCH ×3 (09:31→22:07)
[2016-12-16] MEDS: METHOCARBAMOL 500 MG TAB PO SCH ×3 (09:31→22:07)
[2016-12-16] MEDS: PANTOPRAZOLE 40MG TAB (PROTONIX) PO SCH ×2 (09:31→22:07)
[2016-12-16] MEDS: PRIMIDONE 50 MG TAB PO SCH ×2 (09:31→22:07)
[2016-12-16] MEDS: BUPRENORPHINE/NALOXONE 8-2MG SUBLINGUAL TABLET(SUBOXONE) SL SCH (09:32)
[2016-12-16] MEDS: HEPARIN SOD (PORCINE) 5000 UNITS/ML VIAL SC SCH ×2 (09:32→22:06)
--- NOTE | 2016-12-16 11:39 | REP ---
REASON: Pain after a fall. COMPARISON: None. FINDINGS: No acute fracture or destructive osseous lesion. Signed by Efren Ruffin DO 12/16/2016 09:48 A
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
--- NOTE | 2016-12-16 12:39 | ECGEPIP ---
Stationary ECG Study [facility] - ED Test Date: 2016-12-15 Pat Name: GALEN PINEDA Department: Room: - Gender: F [employer]: FLASH : 1970 Requested By: ILDA Bender Order Number: [id number] Reading MD: Lana High Measurements Intervals [place] Rate: 60 P: 58 IN: 129 QRS: 70 QRSD: 98 T: 61 QT: 410 QTc: 412 Interpretive Statements SINUS RHYTHM NSTTW ABNORMALITY SIMILAR 05/01/16 Electronically Signed On 12-16-2016 12:39:39 EDT by Lana High
[2016-12-16] MEDS: RIZATRIPTAN BENZOATE 10 MG TAB PO PRN (15:54)
[2016-12-16] MEDS: BUPRENORPHINE/NALOXONE 2-0.5MG SUBLINGUAL TABLET(SUBOXONE) SL SCH (20:14)
[2016-12-16] MEDS: QUEtiapine FUMARATE 200 MG TAB PO SCH (22:07)
[2016-12-16] MEDS: tiZANidine 4 MG TAB PO SCH (22:07)
[2016-12-17] VITALS (11 sets, daily range): BP systolic 76–120; BP diastolic 44–77
[2016-12-17] MEDS: NS 1,000 ML IV SCH (04:19)
[2016-12-17 05:22] LABS: BASO % 0.5 % (0.0-1.0); EOS # 0.1 10^3/uL (0.0-0.50); EOS % 3.6 % (0.0-3.0); IMMATURE GRANULOCYTE % 0.5 % (0-0); LYMPH # 2.2 10^3/uL (1.5-4.5); LYMPH % 55.9 % (24.0-44.0); MEAN CORPUSCULAR HEMOGLOBIN 30.7 pg (27.0-33.0); MEAN CORPUSCULAR HGB CONC 31.9 g/dl (32.0-36.5); MEAN CORPUSCULAR VOLUME 96.2 fl (80.0-96.0); MONO # 0.3 10^3/uL (0.0-0.8); MONO % 7.2 % (0.0-5.0); NEUTROPHILS # 1.3 10^3/uL (1.8-7.7); NEUTROPHILS % 32.3 % (36.0-66.0); PLATELET COUNT, AUTOMATED 129 10^3/uL (150-450); RED CELL DISTRIBUTION WIDTH 13.5 % (11.5-14.5); WHITE BLOOD COUNT 3.9 10^3/uL (4.0-10.0)
[2016-12-17 05:47] LABS: ANION GAP 3 MEQ/L (8-16); BLOOD UREA NITROGEN 3 MG/DL (7-18); CALCIUM LEVEL 7.5 MG/DL (8.5-10.1); CARBON DIOXIDE LEVEL 31 MEQ/L (21-32); CHLORIDE LEVEL 109 MEQ/L (98-107); CREATININE FOR GFR 0.76 MG/DL (0.55-1.02); GLOMERULAR FILTRATION RATE > 60.0 (>58); GLUCOSE, FASTING 130 MG/DL (70-105); POTASSIUM SERUM 3.7 MEQ/L (3.5-5.1); SODIUM LEVEL 143 MEQ/L (136-145)
[2016-12-17] MEDS: HEPARIN SOD (PORCINE) 5000 UNITS/ML VIAL SC SCH ×2 (08:13→21:58)
[2016-12-17] MEDS: DULoxetine 30 MG CAP (CYMBALTA) PO SCH ×2 (08:13→21:57)
[2016-12-17] MEDS: BUPRENORPHINE/NALOXONE 8-2MG SUBLINGUAL TABLET(SUBOXONE) SL SCH (08:13)
[2016-12-17] MEDS: GABAPENTIN 300 MG CAP PO SCH ×3 (08:13→21:56)
[2016-12-17] MEDS: busPIRone 10 MG TAB PO SCH ×2 (08:13→21:57)
[2016-12-17] MEDS: METHOCARBAMOL 500 MG TAB PO SCH ×3 (08:13→21:57)
[2016-12-17] MEDS: PANTOPRAZOLE 40MG TAB (PROTONIX) PO SCH ×2 (08:13→21:57)
[2016-12-17] MEDS: PRIMIDONE 50 MG TAB PO SCH ×2 (08:13→21:57)
[2016-12-17] MEDS ORDERED: INFLUENZA QUADRIVALENT PF VACCINE 0.5ML SYRINGE (90686) IM ONE (09:00)
[2016-12-17] MEDS ORDERED: SLF 3 ML SYR IV PRN (10:30)
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
[2016-12-17] MEDS: MIDODRINE 2.5 MG TAB PO SCH ×2 (14:17→17:52)
[2016-12-17] MEDS: SLF 3 ML SYR IV SCH ×2 (14:17→21:58)
[2016-12-17] MEDS: BUPRENORPHINE/NALOXONE 2-0.5MG SUBLINGUAL TABLET(SUBOXONE) SL SCH (20:39)
[2016-12-17] MEDS: QUEtiapine FUMARATE 200 MG TAB PO SCH (21:56)
[2016-12-17] MEDS: tiZANidine 4 MG TAB PO SCH (21:57)
[2016-12-18 06:00] VITALS: BP 86/62
[2016-12-18] MEDS: SLF 3 ML SYR IV SCH ×3 (06:00→21:57)
[2016-12-18 07:18] LABS: BASO % 0.7 % (0.0-1.0); EOS # 0.2 10^3/uL (0.0-0.50); IMMATURE GRANULOCYTE % 0.5 % (0-0); LYMPH # 2.1 10^3/uL (1.5-4.5); LYMPH % 52.5 % (24.0-44.0); MEAN CORPUSCULAR HEMOGLOBIN 30.5 pg (27.0-33.0); MEAN CORPUSCULAR HGB CONC 32.4 g/dl (32.0-36.5); MONO # 0.3 10^3/uL (0.0-0.8); MONO % 7.7 % (0.0-5.0); NEUTROPHILS # 1.4 10^3/uL (1.8-7.7); NEUTROPHILS % 33.6 % (36.0-66.0); PLATELET COUNT, AUTOMATED 132 10^3/uL (150-450); RED CELL DISTRIBUTION WIDTH 13.3 % (11.5-14.5)
[2016-12-18 07:35] LABS: ANION GAP 3 MEQ/L (8-16); BLOOD UREA NITROGEN 2 MG/DL (7-18); CALCIUM LEVEL 7.9 MG/DL (8.5-10.1); CARBON DIOXIDE LEVEL 32 MEQ/L (21-32); CHLORIDE LEVEL 109 MEQ/L (98-107); CREATININE FOR GFR 0.66 MG/DL (0.55-1.02); GLOMERULAR FILTRATION RATE > 60.0 (>58); GLUCOSE, FASTING 87 MG/DL (70-105); POTASSIUM SERUM 3.9 MEQ/L (3.5-5.1); SODIUM LEVEL 144 MEQ/L (136-145)
[2016-12-18] MEDS: METHOCARBAMOL 500 MG TAB PO SCH ×3 (08:18→21:55)
[2016-12-18] MEDS: BUPRENORPHINE/NALOXONE 8-2MG SUBLINGUAL TABLET(SUBOXONE) SL SCH (08:18)
[2016-12-18] MEDS: busPIRone 10 MG TAB PO SCH ×2 (08:19→21:55)
[2016-12-18] MEDS: GABAPENTIN 300 MG CAP PO SCH ×3 (08:19→21:56)
[2016-12-18] MEDS: PANTOPRAZOLE 40MG TAB (PROTONIX) PO SCH ×2 (08:19→21:56)
[2016-12-18] MEDS: MIDODRINE 2.5 MG TAB PO SCH ×3 (08:19→16:07)
[2016-12-18] MEDS: DULoxetine 30 MG CAP (CYMBALTA) PO SCH ×2 (08:19→21:55)
[2016-12-18] MEDS: PRIMIDONE 50 MG TAB PO SCH ×2 (08:19→21:55)
[2016-12-18] MEDS: HEPARIN SOD (PORCINE) 5000 UNITS/ML VIAL SC SCH ×2 (08:20→21:56)
[2016-12-18] MEDS ORDERED: INFLUENZA QUADRIVALENT PF VACCINE 0.5ML SYRINGE (90686) IM ONE (09:00)
[2016-12-18 10:00] VITALS: BP_SYST 73; BP_SYST 76; BP_SYST 87; BP_DIAS 45; BP_DIAS 51; BP_DIAS 54
[2016-12-18 13:30] VITALS: BP_SYST 104; BP_SYST 109; BP_SYST 90; BP_DIAS 51; BP_DIAS 59; BP_DIAS 62
[2016-12-18] MEDS: RIZATRIPTAN BENZOATE 10 MG TAB PO PRN (13:46)
[2016-12-18 14:00] VITALS: BP 109/62
[2016-12-18 17:15] VITALS: BP_SYST 103; BP_SYST 104; BP_SYST 112; BP_DIAS 67; BP_DIAS 71; BP_DIAS 72
--- NOTE | 2016-12-18 19:15 | IPNPDOC ---
Date Seen The patient was seen on 12/18/16. Progress Note Hospitalist Progress Note Subjective: Patient states that she has a headache today Objective: Physical Exam: Vitals: Vital Sign - Last 24 Hours 12/17/16 12/18/16 12/18/16 12/18/16 22:00 06:00 10:00 10:00 Temp 98.3 Pulse 77 60 78 78 89 75 91 91 Resp 17 B/P (MAP) 120/72 (88) 86/62 (70) 87/54 (65) 87/54 (65) 115/76 (89) 76/51 (59) 113/73 (86) 73/45 (54) Pulse Ox 99 O2 Delivery Room Air 12/18/16 12/18/16 13:30 14:00 Temp 98.5 Pulse 84 84 84 98 Resp 17 B/P (MAP) 109/62 (78) 109/62 (78) 104/59 (74) 90/51 (64) Pulse Ox 97 O2 Delivery Room Air General: Awake, alert, no acute distress HEENT: Normocephalic, atraumatic, extraocular movements intact CV: Regular rate and rhythm Lungs: Clear to auscultation bilaterally Abd: Soft, nontender, nondistended Extremities: No edema Neuro: Alert and oriented 3, normal speech Psych: Normal mood and affect Labs and Imaging: Laboratory Tests 12/18/16 07:01 Red Blood Count 3.18 L, Mean Corpuscular Volume 94.0, Mean Corpuscular Hemoglobin 30.5, Mean Corpuscular Hemoglobin Concent 32.4, Red Cell Distribution Width 13.3, Neutrophils (%) (Auto) 33.6 L, Lymphocytes (%) (Auto) 52.5 H, Monocytes (%) (Auto) 7.7 H, Eosinophils (%) (Auto) 5.0 H, Basophils (%) (Auto) 0.7, Neutrophils # (Auto) 1.4 L, Lymphocytes # (Auto) 2.1, Monocytes # ( Auto) 0.3, Eosinophils # (Auto) 0.2, Basophils # (Auto) 0.0, Calcium Level 7.9 L Assessment and Plan: 46-year-old female with depression, anxiety, chronic back pain, history of narcotic dependence currently on Suboxone, history of morbid obesity status post gastric bypass, Mnire's disease who was admitted with syncope and has been found to have orthostatic hypotension. 1. Orthostatic hypotension: This is likely multifactorial in nature, secondary to the patient's multiple psychiatric medications, her Suboxone, her weight loss after her gastric bypass, as well as the fact that she was on HCTZ/ triamterene for Mnire's, and had recently been started on clonidine for anxiety. At this time, the clonidine, HCTZ, and triamterene have all been stopped. The patient was still orthostatic, so she was started on midodrine yesterday. We'll continue to monitor her response to midodrine. 2. Depression and anxiety: Continue home BuSpar, Seroquel, Mysoline and Cymbalta. Clonidine has been stopped. 3. Chronic back pain: Continue home Suboxone, Neurontin, Robaxin, Zanaflex. 4. Mnire's disease: Stopped home HCTZ and triamterene given hypotension. 5. Syncope: This appears to be related to her hypotension. Her EKG showed normal sinus rhythm and she had no arrhythmias on telemetry. 6. Normocytic anemia: Patient's hemoglobin upon admission was 11, and has now trended down but stabilized in the 9s. We will check a TSH, iron studies, and fecal occult blood. Continue home PPI. DVT prophylaxis: Heparin Dispo: pending improvement in orthostasis VS, I&O, [facility] Vital Signs/I&O Vital Signs Date Time Temp Pulse Resp B/P (MAP) Pulse Ox O2 Delivery O2 Flow Rate FiO2 12/18/16 14:00 98.5 84 17 109/62 (78) 97 Room Air I&O- Last 24 Hours up to 6 AM 12/19/16 06:00 Intake Total 720 ml Balance 720 ml Laboratory Data 24H LABS Laboratory Tests 2 12/18/16 07:01: Immature Granulocyte % (Auto) 0.5H, White Blood Count 4.0, Red Blood Count 3.18L , Hemoglobin 9.7L, Hematocrit 29.9L, Mean Corpuscular Volume 94.0, Mean Corpuscular Hemoglobin 30.5, Mean Corpuscular Hemoglobin Concent 32.4, Red Cell Distribution Width 13.3, Platelet Count 132L, Neutrophils (%) (Auto) 33.6L, Lymphocytes (%) (Auto) 52.5H, Monocytes (%) (Auto) 7.7H, Eosinophils (%) (Auto) 5.0H, Basophils (%) (Auto) 0.7, Neutrophils # (Auto) 1.4L, Lymphocytes # (Auto) 2.1, Monocytes # (Auto) 0.3, Eosinophils # (Auto) 0.2, Basophils # (Auto) 0.0, Immature Granulocyte # (Auto) 0.0, Nucleated Red Blood Cells % (auto) 0.0, Anion Gap 3L, Glomerular Filtration Rate > 60.0, Blood Urea Nitrogen 2L, Creatinine 0.66, Sodium Level 144, Potassium Level 3.9, Chloride Level 109H, Carbon Dioxide Level 32, Calcium Level 7.9L CBC/BMP Laboratory Tests 12/18/16 07:01 Red Blood Count 3.18 L, Mean Corpuscular Volume 94.0, Mean Corpuscular Hemoglobin 30.5, Mean Corpuscular Hemoglobin Concent 32.4, Red Cell Distribution Width 13.3, Neutrophils (%) (Auto) 33.6 L, Lymphocytes (%) (Auto) 52.5 H, Monocytes (%) (Auto) 7.7 H, Eosinophils (%) (Auto) 5.0 H, Basophils (%) (Auto) 0.7, Neutrophils # (Auto) 1.4 L, Lymphocytes # (Auto) 2.1, Monocytes # ( Auto) 0.3, Eosinophils # (Auto) 0.2, Basophils # (Auto) 0.0, Calcium Level 7.9 L MERA LUI Dec 18, 2016 19:14
[2016-12-18] MEDS: BUPRENORPHINE/NALOXONE 2-0.5MG SUBLINGUAL TABLET(SUBOXONE) SL SCH (20:21)
[2016-12-18] MEDS: QUEtiapine FUMARATE 200 MG TAB PO SCH (21:56)
[2016-12-18] MEDS: tiZANidine 4 MG TAB PO SCH (21:56)
[2016-12-18 22:00] VITALS: BP 110/68
[2016-12-19] MEDS: SLF 3 ML SYR IV SCH ×2 (04:15→14:00)
[2016-12-19 06:00] VITALS: BP 84/60
[2016-12-19] MEDS ORDERED: NS 1,000 ML IV ONE (06:30)
[2016-12-19 07:12] LABS: BASO % 0.8 % (0.0-1.0); EOS # 0.2 10^3/uL (0.0-0.50); EOS % 4.6 % (0.0-3.0); IMMATURE GRANULOCYTE % 0.5 % (0-0); LYMPH # 1.8 10^3/uL (1.5-4.5); LYMPH % 49.6 % (24.0-44.0); MEAN CORPUSCULAR HEMOGLOBIN 30.5 pg (27.0-33.0); MEAN CORPUSCULAR HGB CONC 32.4 g/dl (32.0-36.5); MEAN CORPUSCULAR VOLUME 94.3 fl (80.0-96.0); MONO # 0.3 10^3/uL (0.0-0.8); MONO % 7.3 % (0.0-5.0); NEUTROPHILS # 1.4 10^3/uL (1.8-7.7); NEUTROPHILS % 37.2 % (36.0-66.0); PLATELET COUNT, AUTOMATED 151 10^3/uL (150-450); RED CELL DISTRIBUTION WIDTH 13.7 % (11.5-14.5); WHITE BLOOD COUNT 3.7 10^3/uL (4.0-10.0)
[2016-12-19 07:18] LABS: ADD MANUAL DIFFER NO; DIFF SLIDE NUMBER 30
[2016-12-19 07:38] LABS: ANION GAP 2 MEQ/L (8-16); BLOOD UREA NITROGEN 3 MG/DL (7-18); CALCIUM LEVEL 7.6 MG/DL (8.5-10.1); CARBON DIOXIDE LEVEL 33 MEQ/L (21-32); CHLORIDE LEVEL 109 MEQ/L (98-107); CREATININE FOR GFR 0.65 MG/DL (0.55-1.02); FERRITIN 31 NG/ML (8-252); GLOMERULAR FILTRATION RATE > 60.0 (>58); GLUCOSE, FASTING 76 MG/DL (70-105); MAGNESIUM LEVEL 1.7 MG/DL (1.8-2.4); PERCENT SATURATION 54.9 % (13.2-45.0); POTASSIUM SERUM 3.8 MEQ/L (3.5-5.1); SODIUM LEVEL 144 MEQ/L (136-145); TOTAL IRON BINDING CAPACITY 153 UG/DL (250-450)
[2016-12-19] MEDS: METHOCARBAMOL 500 MG TAB PO SCH ×2 (08:28→16:07)
[2016-12-19] MEDS: BUPRENORPHINE/NALOXONE 8-2MG SUBLINGUAL TABLET(SUBOXONE) SL SCH (08:28)
[2016-12-19] MEDS: PANTOPRAZOLE 40MG TAB (PROTONIX) PO SCH (08:28)
[2016-12-19] MEDS: DULoxetine 30 MG CAP (CYMBALTA) PO SCH (08:28)
[2016-12-19] MEDS: MIDODRINE 2.5 MG TAB PO SCH ×3 (08:28→16:07)
[2016-12-19] MEDS: PRIMIDONE 50 MG TAB PO SCH (08:28)
[2016-12-19] MEDS: busPIRone 10 MG TAB PO SCH (08:28)
[2016-12-19] MEDS: HEPARIN SOD (PORCINE) 5000 UNITS/ML VIAL SC SCH (08:28)
[2016-12-19] MEDS: GABAPENTIN 300 MG CAP PO SCH ×2 (08:28→16:07)
[2016-12-19] MEDS: MAG SULF 1GM/100ML (MAG RUN) 1 GM in APPROPRIATE DILUENT 1 EA IV SCH ×2 (09:22→10:39)
[2016-12-19 10:00] VITALS: BP_SYST 88; BP_SYST 89; BP_SYST 90; BP_DIAS 51; BP_DIAS 53
[2016-12-19 13:30] VITALS: BP_SYST 101; BP_SYST 102; BP_SYST 105; BP_DIAS 57; BP_DIAS 59; BP_DIAS 60
[2016-12-19 14:00] VITALS: BP 105/60
[2016-12-19] MEDS ORDERED: MULTLIQ7 PO (14:32)
[2016-12-19] MEDS ORDERED: MIDO2.5T PO (14:32)
[2016-12-19] MEDS ORDERED: QUET1TAB8 PO (14:32)
--- NOTE | 2016-12-19 15:24 | DS.PDOC ---
Discharge Summary General Date of Admission Dec 15, 2016 at 18:17 Date of Discharge 12/19/2016 Discharge Summary DISCHARGE SUMMARY DATE OF ADMISSION: 12/15/2016 DATE OF DISCHARGE: 12/19/2016 PRIMARY CARE PHYSICIAN: Kimberly Thomas Psychiatrist: Dr. Lai DISCHARGE DIAGNOS(E)S: Syncope secondary to orthostatic hypotension HPI & HOSPITAL COURSE: 46-year-old female with depression, anxiety, chronic back pain, history of narcotic dependence currently on Suboxone, history of morbid obesity status post gastric bypass, Mnire's disease who was admitted with syncope and has been found to have orthostatic hypotension. 1. Orthostatic hypotension: This is likely multifactorial in nature, secondary to the patient's multiple psychiatric medications, her Suboxone, her weight loss after her gastric bypass, as well as the fact that she was on HCTZ/ triamterene for Mnire's, and had recently been started on clonidine for anxiety. At this time, the clonidine, HCTZ, and triamterene have all been stopped. The patient was still orthostatic, so she was started on midodrine. On midodrine, she is no longer orthostatic and was cleared by PT to be safe to ambulate at home. Although her BP is still relatively soft, she is not symptomatic and she says she does not feel dizzy like when she arrived. 2. Depression and anxiety: Continue home BuSpar, Seroquel, Mysoline and Cymbalta. Clonidine has been stopped. Nursing staff noticed that patient was very somnolent at night after receiving all her scheduled psych meds, and the patient states that her live in boyfriend reports the same scenario. Given that she is prone to orthostatic hypotension when not on midodrine (e.g. at night while sleeping), this could be problematic for her, if she is not alert enough to remember to be cognizant of her need to get up slowly. She would benefit from down-titration of her nightly meds, but this should be done and supervised by her psychiastrist. We will wean her seroquel a bit at discharge, but it was discussed with the patient that she needs close follow up with her psychiatrist to discuss this. The patient expresses good understanding of this. 3. Chronic back pain: Continue home Suboxone, Neurontin, Robaxin, Zanaflex. 4. Mnire's disease: Stopped home HCTZ and triamterene given hypotension. 5. Syncope: This appears to be related to her hypotension. Her EKG showed normal sinus rhythm and she had no arrhythmias on telemetry. 6. Normocytic anemia: Patient's hemoglobin upon admission was 11, and has now trended down but stabilized in the 9s. Today it is up a bit to 10.2. She has had no overt bleeding. She did not stool, so we could not collect FOBT. TSH was upper limit of normal. She will need to follow up with PCP for further work up of anemia. Continue home PPI. DVT prophylaxis: Heparin PHYSICAL EXAMINATION ON DISCHARGE: VITAL SIGNS: Vital Sign - Last 24 Hours 12/18/16 12/18/16 12/18/16 12/19/16 17:15 22:00 22:00 00:26 Temp 98.8 Pulse 70 72 78 81 Resp 17 B/P (MAP) 112/71 (85) 110/68 (82) 104/72 (83) 103/67 (79) Pulse Ox 96 O2 Delivery Room Air Room Air Room Air 12/19/16 12/19/16 12/19/16 12/19/16 06:00 06:00 09:00 10:00 Temp 97.3 Pulse 55 77 88 90 Resp 16 B/P (MAP) 84/60 (68) 90/51 (64) 89/51 (64) 88/53 (65) Pulse Ox 93 O2 Delivery Room Air Room Air 12/19/16 13:30 Pulse 83 83 87 B/P (MAP) 105/60 (75) 102/59 (73) 101/57 (72) General: Awake, alert, no acute distress HEENT: Normocephalic, atraumatic, extraocular movements intact CV: Regular rate and rhythm Lungs: Clear to auscultation bilaterally Abd: Soft, nontender, nondistended Extremities: No edema Neuro: Alert and oriented 3, normal speech Psych: Normal mood and affect DISPOSITION: Home DISCHARGE INSTRUCTIONS: Follow-up PCP within one week. The patient needs further monitoring of her blood pressure and further workup of her anemia. Follow-up primary psychiatrist within 1 week. Patient needs supervised down titration of her nightly psychiatric meds, of which there are many. If symptoms return, or if you experience worsening of your symptoms, please call your doctor or return to the emergency department. ITEMS THAT NEED OUTPATIENT FOLLOWUP: Down titration of nightly psychiatric meds by her psychiatrist Blood pressure monitoring and outpatient workup of anemia by PCP Patient was seen and examined by me on the day of discharge, and I spent a total time of greater than 30 minutes on this discharge. Vital Signs/I&Os Vital Signs Date Time Temp Pulse Resp B/P (MAP) Pulse Ox O2 Delivery O2 Flow Rate FiO2 12/19/16 13:30 83 105/60 (75) 83 102/59 (73) 87 101/57 (72) 12/19/16 09:00 Room Air 12/19/16 06:00 97.3 16 93 I&O- Last 24 Hours up to 6 AM 12/20/16 06:00 Intake Total 720 ml Output Total 2400 ml Balance -1680 ml Laboratory Data Labs 24H Laboratory Tests 2 12/19/16 06:38: Immature Granulocyte % (Auto) 0.5H, White Blood Count 3.7L, Red Blood Count 3.34L, Hemoglobin 10.2L, Hematocrit 31.5L, Mean Corpuscular Volume 94.3, Mean Corpuscular Hemoglobin 30.5, Mean Corpuscular Hemoglobin Concent 32.4, Red Cell Distribution Width 13.7, Platelet Count 151, Neutrophils (%) (Auto) 37.2, Lymphocytes (%) (Auto) 49.6H, Monocytes (%) (Auto) 7.3H, Eosinophils (%) (Auto) 4.6H, Basophils (%) (Auto) 0.8, Neutrophils # (Auto) 1.4L, Lymphocytes # (Auto) 1.8, Monocytes # (Auto) 0.3, Eosinophils # (Auto) 0.2, Basophils # (Auto) 0.0, Immature Granulocyte # (Auto) 0.0, Nucleated Red Blood Cells % (auto) 0.0, Anion Gap 2L, Glomerular Filtration Rate > 60.0, Blood Urea Nitrogen 3L, Creatinine 0.65, Sodium Level 144, Potassium Level 3.8, Chloride Level 109H, Carbon Dioxide Level 33H, Calcium Level 7.6L, Magnesium Level 1.7L, Iron Level 84, Total Iron Binding Capacity 153L, Transferrin % Saturation 54.9H, Ferritin 31, Thyroid Stimulating Hormone (TSH) 3.780H CBC/BMP Laboratory Tests 12/19/16 06:38 Red Blood Count 3.34 L, Mean Corpuscular Volume 94.3, Mean Corpuscular Hemoglobin 30.5, Mean Corpuscular Hemoglobin Concent 32.4, Red Cell Distribution Width 13.7, Neutrophils (%) (Auto) 37.2, Lymphocytes (%) (Auto) 49.6 H, Monocytes (%) (Auto) 7.3 H, Eosinophils (%) (Auto) 4.6 H, Basophils (%) (Auto) 0.8, Neutrophils # (Auto) 1.4 L, Lymphocytes # (Auto) 1.8, Monocytes # ( Auto) 0.3, Eosinophils # (Auto) 0.2, Basophils # (Auto) 0.0, Calcium Level 7.6 L Discharge Medications Scheduled (Multivitamin) 1 Liq Liq, 1 LIQ PO DAILY Buprenorphine/Naloxone (Suboxone 4-1 mg) 1 Mis Mis, 1 MIS SL QPM, (Reported) Buprenorphine/Naloxone (Suboxone 8-2 mg) 1 Mis Mis, 1 MIS SL DAILY, (Reported) Buspirone HCl (Buspirone HCl) 10 Mg Tab, 20 MG PO BID, (Reported) Duloxetine Hcl (Cymbalta) 60 Mg Cap, 60 MG PO BID, (Reported) Gabapentin (Gabapentin) 600 Mg Tab, 600 MG PO TID, (Reported) Methocarbamol (Methocarbamol) 500 Mg Tab, 500 MG PO TID, (Reported) Midodrine (Midodrine HCl) 2.5 Mg Tab, 2.5 MG PO 08,12,16 Pantoprazole Sodium Sesquihydr (Protonix) 40 Mg Tab, 40 MG PO BID, (Reported) Primidone (Primidone) 50 Mg Tab, 50 MG PO BID, (Reported) Quetiapine Fumerate (Quetiapine Fumarate) 100 Mg Tab, 300 MG PO QHS Tizanidine Hydrochloride (Zanaflex) 4 Mg Tab, 1 TAB PO QHS, (Reported) Scheduled PRN Acetaminophen (Acetaminophen) 500 Mg Tab, 1,000 MG PO Q8H PRN for PAIN, ( Reported) Polyethylene Glycol (Miralax) 1 Pow Pow, 17 GM PO DAILY PRN for CONSTIPATION, ( Reported) Quetiapine Fumerate (Seroquel) 25 Mg Tab, 25 MG PO BID PRN for ANXIETY, ( Reported) Rizatriptan Benzoate (Rizatriptan Benzoate) 10 Mg Tab, 10 MG PO DAILY PRN for MIGRAINE, (Reported) Allergies Coded Allergies: Ibuprofen (Verified Allergy, Intermediate, RASH, 11/02/16) Nickel (Unverified Allergy, Unknown, RASH, BLISTERS, 11/02/16) NSAIDs (Verified Adverse Reaction, Intermediate, GASTRIC BYPASS, 11/02/16) MERA LUI Dec 19, 2016 15:24
[2016-12-19] MEDS ORDERED: QUEtiapine FUMARATE 100 MG TAB PO SCH (21:00)
== END 2016-12-19 16:56 | disposition home or self-care (01) | DRG 207 ==
LOC: M ED 16:26 → M ED INP 20:32 → OBSVTOIN 20:32 → M PCU 22:17 → M MSPAV 12-17 14:57 → OBSVTOIN 12-18 18:17 → INTOOBSV 12-18 18:17
PROVIDERS: ADMIT Internal Medicine; ATTEND Hospitalist
DX: I95.2 Hypotension due to drugs (principal); F32.9 Major depressive disorder, single episode, unspecified; F41.9 Anxiety disorder, unspecified; M54.9 Dorsalgia, unspecified; E87.6 Hypokalemia; T44.6X5A Adverse effect of alpha-adrenoreceptor antagonists, initial encounter; H81.09 Meniere's disease, unspecified ear; D64.9 Anemia, unspecified; T50.2X5A Adverse effect of carbonic-anhydrase inhibitors, benzothiadiazides and other diuretics, initial encounter; Z88.6 Allergy status to analgesic agent; Z91.048 Other nonmedicinal substance allergy status; Z79.899 Other long term (current) drug therapy; Z98.84 Bariatric surgery status

== ENCOUNTER → 2017-01-15 | Outpatient (CLI) | payer OTHER ==
[~2017-01-15] MED LIST changes: +BUSP10TA PO; +CLONI1TA PO; +DYAZ37.5 PO; +GABA600T PO; +MIDO2.5T PO; +MULTLIQ7 PO; +QUET1TAB8 PO; +QUET400T PO; +RIZA10TA2 PO; +SUBO8MIS SL; +ZANA4TAB PO
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
== END ==
LOC: M PAIN 08:30
PROVIDERS: ATTEND Nurse Practitioner Family
DX: G89.29 Other chronic pain (principal); M79.1 Myalgia; M50.223 Other cervical disc displacement at C6-C7 level; M51.26 Other intervertebral disc displacement, lumbar region; F32.9 Major depressive disorder, single episode, unspecified; F43.10 Post-traumatic stress disorder, unspecified; F40.01 Agoraphobia with panic disorder; K59.00 Constipation, unspecified; Z98.84 Bariatric surgery status; Z87.891 Personal history of nicotine dependence; Z79.899 Other long term (current) drug therapy; Z91.410 Personal history of adult physical and sexual abuse; Z88.6 Allergy status to analgesic agent; Z91.048 Other nonmedicinal substance allergy status

== ENCOUNTER → 2017-01-21 | Outpatient (REF) | payer OTHER ==
[2017-01-21 15:41] LABS: MEAN CORPUSCULAR HEMOGLOBIN 29.8 pg (27.0-33.0); MEAN CORPUSCULAR HGB CONC 31.5 g/dl (32.0-36.5); MEAN CORPUSCULAR VOLUME 94.6 fl (80.0-96.0); PLATELET COUNT, AUTOMATED 194 10^3/uL (150-450); RED CELL DISTRIBUTION WIDTH 14.4 % (11.5-14.5); WHITE BLOOD COUNT 4.6 10^3/uL (4.0-10.0)
[2017-01-21 16:11] LABS: ALBUMIN 2.8 GM/DL (3.2-5.2); ALBUMIN/GLOBULIN RATIO 1.22 (1.00-1.93); ALKALINE PHOSPHATASE 58 U/L (45-117); ALT/SGPT 16 U/L (12-78); ANION GAP 4 MEQ/L (8-16); AST/SGOT 18 U/L (7-37); BILIRUBIN,TOTAL 0.2 MG/DL (0.2-1.0); BLOOD UREA NITROGEN 8 MG/DL (7-18); CALCIUM LEVEL 8.2 MG/DL (8.5-10.1); CARBON DIOXIDE LEVEL 35 MEQ/L (21-32); CHLORIDE LEVEL 103 MEQ/L (98-107); CREATININE FOR GFR 0.85 MG/DL (0.55-1.02); GLOMERULAR FILTRATION RATE > 60.0 (>58); GLUCOSE, FASTING 72 MG/DL (70-105); POTASSIUM SERUM 4.8 MEQ/L (3.5-5.1); SODIUM LEVEL 142 MEQ/L (136-145); TOTAL PROTEIN 5.1 GM/DL (6.4-8.2)
[2017-01-21 16:12] LABS: VITAMIN B12 LEVEL 399 PG/ML (247-911)
== END ==
LOC: M SFHCPLAZ 14:45
PROVIDERS: ATTEND Nurse Practitioner Adult Health
DX: I95.1 Orthostatic hypotension (principal); E53.8 Deficiency of other specified B group vitamins

== ENCOUNTER → 2017-02-12 | Outpatient (CLI) | payer OTHER ==
[~2017-02-12] MED LIST changes: +BUPIVACAINE HCL 0.25% 10 ML VIAL As Ordered ONE; +BUPIVACAINE HCL 0.25% 30 ML VIAL As Ordered ONE; +TRIAMCINOLONE ACETONIDE SUSP 40 MG/ML VIAL (J3301) As Ordered ONE; +diazePAM 5 MG TAB As Ordered ONE; +oxyCODONE 5MG TAB As Ordered ONE
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
== END ==
LOC: M PAIN 11:15
PROVIDERS: ATTEND Anesthesiology
DX: G89.29 Other chronic pain (principal); M79.1 Myalgia; F32.9 Major depressive disorder, single episode, unspecified; F43.10 Post-traumatic stress disorder, unspecified; F40.01 Agoraphobia with panic disorder; K59.00 Constipation, unspecified; K29.60 Other gastritis without bleeding; Z87.891 Personal history of nicotine dependence; Z98.84 Bariatric surgery status; Z88.6 Allergy status to analgesic agent; Z91.048 Other nonmedicinal substance allergy status
CPT/HCPCS: 20553; J3301

== ENCOUNTER → 2017-02-20 | Outpatient (CLI) | payer OTHER | LOC: M PAIN 10:30 | DX: G89.29 Other chronic pain (principal); M79.1 Myalgia; M50.223 Other cervical disc displacement at C6-C7 level; M51.26 Other intervertebral disc displacement, lumbar region; F32.9 Major depressive disorder, single episode, unspecified; Z98.84 Bariatric surgery status; Z87.891 Personal history of nicotine dependence; F43.10 Post-traumatic stress disorder, unspecified; F41.9 Anxiety disorder, unspecified; F11.20 Opioid dependence, uncomplicated; Z91.410 Personal history of adult physical and sexual abuse; F40.01 Agoraphobia with panic disorder; K59.00 Constipation, unspecified; H81.09 Meniere's disease, unspecified ear; Z79.899 Other long term (current) drug therapy; Z88.8 Allergy status to other drugs, medicaments and biological substances; Z88.6 Allergy status to analgesic agent; Z91.048 Other nonmedicinal substance allergy status | CPT/HCPCS: G0463 ==

== ENCOUNTER → 2017-03-08 | Outpatient (CLI) | payer OTHER ==
[2017-03-08 11:48] LABS: MEAN CORPUSCULAR HEMOGLOBIN 28.9 pg (27.0-33.0); MEAN CORPUSCULAR HGB CONC 31.2 g/dl (32.0-36.5); MEAN CORPUSCULAR VOLUME 92.5 fl (80.0-96.0); PLATELET COUNT, AUTOMATED 319 10^3/uL (150-450); RED CELL DISTRIBUTION WIDTH 14.6 % (11.5-14.5); WHITE BLOOD COUNT 3.7 10^3/uL (4.0-10.0)
[2017-03-08 12:06] LABS: VITAMIN B12 LEVEL 215 PG/ML (247-911)
[2017-03-08 12:17] LABS: ALBUMIN/GLOBULIN RATIO 1.03 (1.00-1.93); ALKALINE PHOSPHATASE 69 U/L (45-117); ALT/SGPT 9 U/L (12-78); ANION GAP 4 MEQ/L (8-16); AST/SGOT 15 U/L (7-37); BILIRUBIN,TOTAL 0.4 MG/DL (0.2-1.0); BLOOD UREA NITROGEN 8 MG/DL (7-18); CALCIUM LEVEL 8.7 MG/DL (8.5-10.1); CARBON DIOXIDE LEVEL 34 MEQ/L (21-32); CHLORIDE LEVEL 105 MEQ/L (98-107); FERRITIN 40 NG/ML (8-252); GLOMERULAR FILTRATION RATE > 60.0 (>58); GLUCOSE, FASTING 83 MG/DL (70-105); PERCENT SATURATION 21.9 % (13.2-45.0); POTASSIUM SERUM 4.4 MEQ/L (3.5-5.1); SODIUM LEVEL 143 MEQ/L (136-145); TOTAL IRON BINDING CAPACITY 251 UG/DL (250-450); TOTAL PROTEIN 5.9 GM/DL (6.4-8.2)
== END ==
LOC: M WUC 09:20
DX: D64.9 Anemia, unspecified (principal); I95.1 Orthostatic hypotension; E53.8 Deficiency of other specified B group vitamins
CPT/HCPCS: 83550

== ENCOUNTER → 2017-04-09 | Outpatient (CLI) | payer OTHER | LOC: M PAIN 11:15 | DX: M50.223 Other cervical disc displacement at C6-C7 level (principal); M51.26 Other intervertebral disc displacement, lumbar region; M79.1 Myalgia; F33.9 Major depressive disorder, recurrent, unspecified; F43.10 Post-traumatic stress disorder, unspecified; F41.9 Anxiety disorder, unspecified; F40.01 Agoraphobia with panic disorder; F11.20 Opioid dependence, uncomplicated; L23.0 Allergic contact dermatitis due to metals; I95.1 Orthostatic hypotension; Z79.899 Other long term (current) drug therapy; Z88.6 Allergy status to analgesic agent; Z88.8 Allergy status to other drugs, medicaments and biological substances; Z87.891 Personal history of nicotine dependence; Z98.84 Bariatric surgery status | CPT/HCPCS: G0463 ==

== ENCOUNTER → 2017-05-21 | Outpatient (CLI) | payer OTHER | LOC: M PAIN 10:30 | DX: M54.2 Cervicalgia (principal); M79.1 Myalgia; M51.26 Other intervertebral disc displacement, lumbar region; E55.9 Vitamin D deficiency, unspecified; F41.9 Anxiety disorder, unspecified; Z79.899 Other long term (current) drug therapy; Z98.84 Bariatric surgery status; Z87.891 Personal history of nicotine dependence; Z88.8 Allergy status to other drugs, medicaments and biological substances; Z91.048 Other nonmedicinal substance allergy status | CPT/HCPCS: G0463 ==

== ENCOUNTER 2017-06-24 13:47 | Emergency (ER) | payer OTHER, MEDICAID | END 2017-06-24 15:56 | disposition left against medical advice (07) | LOC: M ED 13:47 | DX: Z53.21 Procedure and treatment not carried out due to patient leaving prior to being seen by health care provider (principal) ==

== ENCOUNTER 2017-06-26 18:32 | Emergency (ER) | payer OTHER, MEDICAID | END 2017-06-26 22:25 | disposition left against medical advice (07) | LOC: M ED 18:32 | DX: T76.11XA Adult physical abuse, suspected, initial encounter (principal); R07.0 Pain in throat; Y04.8XXA Assault by other bodily force, initial encounter; Y92.89 Other specified places as the place of occurrence of the external cause; I10 Essential (primary) hypertension; F41.9 Anxiety disorder, unspecified; F32.9 Major depressive disorder, single episode, unspecified; Z87.19 Personal history of other diseases of the digestive system; Z98.84 Bariatric surgery status; Z88.8 Allergy status to other drugs, medicaments and biological substances; Z91.048 Other nonmedicinal substance allergy status; Z79.899 Other long term (current) drug therapy | CPT/HCPCS: 87880 ==

== ENCOUNTER → 2017-07-09 | Outpatient (CLI) | payer OTHER | LOC: M PAIN 11:15 | DX: G89.29 Other chronic pain (principal); M79.1 Myalgia; M50.223 Other cervical disc displacement at C6-C7 level; M51.26 Other intervertebral disc displacement, lumbar region; F32.9 Major depressive disorder, single episode, unspecified; H81.09 Meniere's disease, unspecified ear; F11.20 Opioid dependence, uncomplicated; F43.10 Post-traumatic stress disorder, unspecified; F41.9 Anxiety disorder, unspecified; K59.00 Constipation, unspecified; F40.01 Agoraphobia with panic disorder; Z91.410 Personal history of adult physical and sexual abuse; Z98.84 Bariatric surgery status; Z79.899 Other long term (current) drug therapy; Z87.891 Personal history of nicotine dependence; Z88.6 Allergy status to analgesic agent; Z88.8 Allergy status to other drugs, medicaments and biological substances | CPT/HCPCS: G0463 ==

== ENCOUNTER → 2017-07-12 | Outpatient (REF) | payer OTHER, MEDICAID ==
[2017-07-16 11:12] LABS: AMPHETAMINES URINE REFLEX NEGATIVE (NEGATIVE); BENZODIAZEPINES URINE REFLEX NEGATIVE (NEGATIVE); CANNABINOIDS URINE REFLEX NEGATIVE (NEGATIVE); COCAINE METABOLITE URINE REFLE NEGATIVE (NEGATIVE); METHADONE URINE REFLEX NEGATIVE (NEGATIVE); OPIATES URINE REFLEX NEGATIVE (NEGATIVE); PHENCYCLIDINE URINE REFLEX NEGATIVE (NEGATIVE)
[2017-07-16 11:13] LABS: BARBITURATES URINE REFLEX PENDING CONFIRMATION (NEGATIVE)
== END ==
LOC: M OUTALCOH 10:28
DX: F12.10 Cannabis abuse, uncomplicated (principal)
CPT/HCPCS: 80345

== ENCOUNTER 2017-09-09 09:44 | Emergency (ER) | payer OTHER, MEDICAID ==
[2017-09-09] MEDS: ACETAMINOPHEN TAB 650MG DOSE (2X325MG) PO (11:08)
== END 2017-09-09 12:34 | disposition home or self-care (01) ==
LOC: M ED 09:44
DX: S93.402A Sprain of unspecified ligament of left ankle, initial encounter (principal); S09.90XA Unspecified injury of head, initial encounter; W19.XXXA Unspecified fall, initial encounter; Y92.89 Other specified places as the place of occurrence of the external cause; F41.9 Anxiety disorder, unspecified; F33.9 Major depressive disorder, recurrent, unspecified; K21.9 Gastro-esophageal reflux disease without esophagitis; G47.00 Insomnia, unspecified; Z98.84 Bariatric surgery status; Z79.899 Other long term (current) drug therapy; Z79.891 Long term (current) use of opiate analgesic; Z88.8 Allergy status to other drugs, medicaments and biological substances; Z91.048 Other nonmedicinal substance allergy status; Z87.891 Personal history of nicotine dependence
CPT/HCPCS: 73610

== ENCOUNTER 2017-10-11 18:32 | Inpatient (IN) | payer OTHER, MEDICAID ==
[2017-10-11] MEDS: NS 1,000 ML IV ×3 (18:45→23:30)
[2017-10-11] MEDS: LORazepam 2 MG/ML VIAL (J2060) IV (19:03)
[2017-10-11] MEDS: METOCLOPRAMIDE INJ 10MG/2ML VIAL (J2765) IV (19:03)
[2017-10-11 19:04] LABS: BASO # 0.1 10^3/uL (0.0-0.2); BASO % 0.3 % (0.0-1.0); HEMATOCRIT 34.4 % (36.0-47.0); HEMOGLOBIN 11.6 g/dl (12.0-15.5); IMMATURE GRANULOCYTE % 0.4 % (0-3.0); LYMPH # 0.9 10^3/uL (1.5-4.5); LYMPH % 5.8 % (24.0-44.0); MEAN CORPUSCULAR HEMOGLOBIN 29.7 pg (27.0-33.0); MEAN CORPUSCULAR HGB CONC 33.7 g/dl (32.0-36.5); MONO # 0.7 10^3/uL (0.0-0.8); MONO % 4.2 % (0.0-5.0); NEUTROPHILS # 14.5 10^3/uL (1.8-7.7); NEUTROPHILS % 89.3 % (36.0-66.0); PLATELET COUNT, AUTOMATED 282 10^3/uL (150-450); RED BLOOD COUNT 3.91 10^6/uL (4.00-5.40); RED CELL DISTRIBUTION WIDTH 14.4 % (11.5-14.5); WHITE BLOOD COUNT 16.3 10^3/uL (4.0-10.0)
[2017-10-11 19:24] LABS: CONTROL LINE HCG INT CTR LINE PRESENT; HCG, SERUM QUALITATIVE NEGATIVE (NEGATIVE)
[2017-10-11 19:43] LABS: ACETAMINOPHEN LEVEL < 2.0 UG/ML (10.0-30.0); ALBUMIN 3.5 GM/DL (3.2-5.2); ALBUMIN/GLOBULIN RATIO 1.09 (1.00-1.93); ALKALINE PHOSPHATASE 66 U/L (45-117); ALT/SGPT 31 U/L (12-78); AMPHETAMINES LEVEL URINE POSITIVE (NEGATIVE); ANION GAP 18 MEQ/L (8-16); AST/SGOT 117 U/L (7-37); BARBITURATES URINE POSITIVE (NEGATIVE); BENZODIAZEPINES URINE NEGATIVE (NEGATIVE); BILIRUBIN,DIRECT 0.3 MG/DL (0.0-0.2); BILIRUBIN,TOTAL 0.9 MG/DL (0.2-1.0); BLOOD UREA NITROGEN 20 MG/DL (7-18); CALCIUM LEVEL 8.9 MG/DL (8.5-10.1); CANNABINOIDS URINE NEGATIVE (NEGATIVE); CARBON DIOXIDE LEVEL 20 MEQ/L (21-32); CHLORIDE LEVEL 100 MEQ/L (98-107); COCAINE METABOLITE URINE POSITIVE (NEGATIVE); CPK CREATINE PHOSPHOKINASE 3661 U/L (26-192); CREATININE FOR GFR 1.17 MG/DL (0.55-1.30); ETHYL ALCOHOL (ETHANOL) < 0.003 % (0.000-0.010); GLOMERULAR FILTRATION RATE 53.3 (>58); METHADONE URINE NEGATIVE (NEGATIVE); OPIATES URINE NEGATIVE (NEGATIVE); PHENCYCLIDINE URINE NEGATIVE (NEGATIVE); POTASSIUM SERUM 4.3 MEQ/L (3.5-5.1); SALICYLATE LEVEL 3.1 MG/DL (5.0-30.0); SODIUM LEVEL 138 MEQ/L (136-145); THYROID STIMULATING HORMONE 0.904 uIU/ML (0.358-3.740); TOTAL PROTEIN 6.7 GM/DL (6.4-8.2)
[2017-10-11 19:49] LABS: GLUCOSE, FASTING 30 MG/DL (70-100)
[2017-10-11] MEDS: DEXTROSE 50% 50 ML SYRINGE IV (19:49)
[2017-10-11 20:01] LABS: BEDSIDE GLUCOSE 210 MG/DL (70-105)
[2017-10-11 21:06] LABS: BEDSIDE GLUCOSE 80 MG/DL (70-105)
[2017-10-11 21:57] LABS: BEDSIDE GLUCOSE 85 MG/DL (70-105)
[2017-10-11 22:32] LABS: ACETONE/KETONE > 46.00 MG/DL (<2.81)
[2017-10-11 22:34] LABS: KETONE, URINE AUTO RFX 2+ mg/dL (NEGATIVE); MUCUS, URINE RFX SMALL (NEGATIVE); NITRITE, URINE AUTO RFX NEGATIVE (NEGATIVE); RBC, URINE AUTO RFX 2 /HPF (0-3); SPECIFIC GRAVITY UR AUTO RFX 1.025 (1.002-1.035); SQUAM EPITHELIAL CELL UR AURFX 4 /HPF (0-6); WBC, URINE AUTO RFX 4 /HPF (0-3)
[2017-10-11 22:39] LABS: LEUKOCYTE ESTERASE UR AUTO RFX TRACE (NEGATIVE)
[2017-10-11 23:07] LABS: TROPONIN I 0.02 NG/ML (< 0.10)
[2017-10-11] MEDS ORDERED: NS 1,000 ML IV (23:30)
[2017-10-11 23:54] LABS: BEDSIDE GLUCOSE 72 MG/DL (70-105)
[2017-10-12 00:31] LABS: ANION GAP 14 MEQ/L (8-16); BLOOD UREA NITROGEN 16 MG/DL (7-18); CALCIUM LEVEL 7.7 MG/DL (8.5-10.1); CARBON DIOXIDE LEVEL 20 MEQ/L (21-32); CHLORIDE LEVEL 108 MEQ/L (98-107); CREATININE FOR GFR 0.86 MG/DL (0.55-1.30); GLOMERULAR FILTRATION RATE > 60.0 (>58); GLUCOSE, FASTING 72 MG/DL (70-100); POTASSIUM SERUM 4.1 MEQ/L (3.5-5.1); SODIUM LEVEL 142 MEQ/L (136-145); TROPONIN I 0.03 NG/ML (< 0.10)
[2017-10-12 00:42] LABS: CK-MB VALUE MASS 22.5 NG/ML (<3.6); CPK CREATINE PHOSPHOKINASE 2743 U/L (26-192); MB/CK RELATIVE INDEX 0.82 (< OR =4)
[2017-10-12] MEDS ORDERED: NS 1,000 ML IV (00:53)
[2017-10-12] MEDS ORDERED: ONDANSETRON 4 MG TAB (S0181) PO (01:00)
[2017-10-12] MEDS: D5W/LR 1,000 ML IV ×4 (01:00→22:25)
[2017-10-12] MEDS ORDERED: BISACODYL 10 MG SUPP PR (01:00)
[2017-10-12] MEDS ORDERED: ACETAMINOPHEN TAB 650MG DOSE (2X325MG) PO (01:00)
[2017-10-12] MEDS: diphenhydrAMINE INJ 50MG/ML VIAL (J1200) IV (01:36)
[2017-10-12] MEDS: HALOPERIDOL 5 MG/ML VIAL (J1630) IM (01:37)
[2017-10-12 01:50] LABS: ABG BASE EXCESS -9.6 (-2.0-2.0); ABG HCO3 15.5 MEQ/L (22.0-26.0); ABG O2 SATURATION 97.2 % (95.0-99.0); ABG PARTIAL PRESSURE CO2 31.1 mmHg (35.0-45.0); ABG PARTIAL PRESSURE O2 104.1 mmHg (75.0-100.0); ABG STANDARD HCO3 16.8 MEQ/L (22.0-26.0); ABG TOTAL CO2 16.5 MEQ/L (22.0-29.0); ABG pH (ARTERIAL) 7.316 UNITS (7.350-7.450)
[2017-10-12 02:16] LABS: BEDSIDE GLUCOSE 64 MG/DL (70-105)
[2017-10-12 02:52] LABS: BEDSIDE GLUCOSE 69 MG/DL (70-105)
[2017-10-12 04:13] LABS: HEMATOCRIT 32.7 % (36.0-47.0); HEMOGLOBIN 10.6 g/dl (12.0-15.5); MEAN CORPUSCULAR HEMOGLOBIN 29.4 pg (27.0-33.0); MEAN CORPUSCULAR HGB CONC 32.4 g/dl (32.0-36.5); MEAN CORPUSCULAR VOLUME 90.6 fl (80.0-96.0); PLATELET COUNT, AUTOMATED 189 10^3/uL (150-450); RED BLOOD COUNT 3.61 10^6/uL (4.00-5.40); RED CELL DISTRIBUTION WIDTH 14.6 % (11.5-14.5); WHITE BLOOD COUNT 9.2 10^3/uL (4.0-10.0)
[2017-10-12 04:30] LABS: LACTIC ACID SEPSIS PROTOCOL 0.6 MMOL/L (0.4-2.0)
[2017-10-12 04:37] LABS: ALKALINE PHOSPHATASE 49 U/L (45-117); ALT/SGPT 28 U/L (12-78); ANION GAP 12 MEQ/L (8-16); AST/SGOT 81 U/L (7-37); BILIRUBIN,TOTAL 0.5 MG/DL (0.2-1.0); BLOOD UREA NITROGEN 13 MG/DL (7-18); CALCIUM LEVEL 7.3 MG/DL (8.5-10.1); CARBON DIOXIDE LEVEL 21 MEQ/L (21-32); CHLORIDE LEVEL 109 MEQ/L (98-107); CREATININE FOR GFR 0.75 MG/DL (0.55-1.30); GLOMERULAR FILTRATION RATE > 60.0 (>58); GLUCOSE, FASTING 98 MG/DL (70-100); POTASSIUM SERUM 3.5 MEQ/L (3.5-5.1); SODIUM LEVEL 142 MEQ/L (136-145)
[2017-10-12 05:02] LABS: ALBUMIN/GLOBULIN RATIO 0.83 (1.00-1.93)
[2017-10-12 05:13] LABS: ALBUMIN 2.4 GM/DL (3.2-5.2); TOTAL PROTEIN 5.3 GM/DL (6.4-8.2)
[2017-10-12] MEDS: HEPARIN SOD (PORCINE) 5000 UNITS/ML VIAL SC ×3 (06:47→21:31)
[2017-10-12 08:05] LABS: BEDSIDE GLUCOSE 108 MG/DL (70-105)
[2017-10-12] MEDS ORDERED: SLF 3 ML SYR IV (11:45)
[2017-10-12] MEDS: SLF 3 ML SYR IV ×2 (14:02→21:31)
[2017-10-12] MEDS ORDERED: MIRALAX *UNIT DOSE* 17GM PACKET PO (14:15)
[2017-10-12] MEDS: GABAPENTIN 300 MG CAP PO ×2 (16:51→21:30)
[2017-10-12] MEDS: busPIRone 10 MG TAB PO (21:29)
[2017-10-12] MEDS: PANTOPRAZOLE 40MG TAB (PROTONIX) PO (21:29)
[2017-10-12] MEDS: MIRTAZAPINE 15 MG TAB PO (21:30)
[2017-10-12] MEDS: DULoxetine 30 MG CAP (CYMBALTA) PO (21:30)
[2017-10-13 05:22] LABS: HEMATOCRIT 34.7 % (36.0-47.0); HEMOGLOBIN 11.2 g/dl (12.0-15.5); MEAN CORPUSCULAR HEMOGLOBIN 29.3 pg (27.0-33.0); MEAN CORPUSCULAR HGB CONC 32.3 g/dl (32.0-36.5); MEAN CORPUSCULAR VOLUME 90.8 fl (80.0-96.0); PLATELET COUNT, AUTOMATED 206 10^3/uL (150-450); RED BLOOD COUNT 3.82 10^6/uL (4.00-5.40); RED CELL DISTRIBUTION WIDTH 15.2 % (11.5-14.5); WHITE BLOOD COUNT 4.5 10^3/uL (4.0-10.0)
[2017-10-13 05:44] LABS: ALBUMIN 2.1 GM/DL (3.2-5.2); ALBUMIN/GLOBULIN RATIO 0.78 (1.00-1.93); ALKALINE PHOSPHATASE 49 U/L (45-117); ALT/SGPT 20 U/L (12-78); ANION GAP 4 MEQ/L (8-16); AST/SGOT 40 U/L (7-37); BILIRUBIN,TOTAL 0.3 MG/DL (0.2-1.0); BLOOD UREA NITROGEN 4 MG/DL (7-18); CALCIUM LEVEL 7.8 MG/DL (8.5-10.1); CARBON DIOXIDE LEVEL 31 MEQ/L (21-32); CHLORIDE LEVEL 114 MEQ/L (98-107); CREATININE FOR GFR 0.58 MG/DL (0.55-1.30); GLOMERULAR FILTRATION RATE > 60.0 (>58); GLUCOSE, FASTING 103 MG/DL (70-100); SODIUM LEVEL 149 MEQ/L (136-145); TOTAL PROTEIN 4.8 GM/DL (6.4-8.2)
[2017-10-13] MEDS: SLF 3 ML SYR IV ×3 (06:00→22:19)
[2017-10-13] MEDS: HEPARIN SOD (PORCINE) 5000 UNITS/ML VIAL SC ×3 (06:04→22:19)
[2017-10-13] MEDS ORDERED: FERROUS SULFATE 325MG TAB PO (09:00)
[2017-10-13] MEDS: GABAPENTIN 300 MG CAP PO ×3 (09:00→22:19)
[2017-10-13] MEDS: busPIRone 10 MG TAB PO ×2 (09:00→22:19)
[2017-10-13] MEDS ORDERED: CYANOCOBALAMIN 500 MCG TAB PO (09:00)
[2017-10-13] MEDS: DULoxetine 30 MG CAP (CYMBALTA) PO ×2 (09:00→22:19)
[2017-10-13] MEDS ORDERED: POTASSIUM CHLORIDE 10 MEQ SR TABLET PO (09:00)
[2017-10-13] MEDS: PANTOPRAZOLE 40MG INJ (PROTONIX) (C9113) IV ×2 (09:21→22:18)
[2017-10-13] MEDS: KCL 40MEQ IN D5/0.45NS 1000ML 1,000 ML IV ×2 (09:21→21:07)
[2017-10-13] MEDS ORDERED: LIDOCAINE 2% INJ 100 MG/5 ML SDV (FOR ANES.) As Ordered (09:49)
[2017-10-13] MEDS ORDERED: PROPOFOL 200 MG/20 ML VIAL As Ordered (09:49)
[2017-10-13] MEDS ORDERED: fentaNYL 100 MCG/2 ML INJECTION (J3010) As Ordered (09:50)
[2017-10-13] MEDS: MIRTAZAPINE 15 MG TAB PO (22:19)
[2017-10-14] MEDS: HEPARIN SOD (PORCINE) 5000 UNITS/ML VIAL SC (05:55)
[2017-10-14] MEDS: KCL 40MEQ IN D5/0.45NS 1000ML 1,000 ML IV (05:55)
[2017-10-14] MEDS: SLF 3 ML SYR IV (05:55)
[2017-10-14] MEDS ORDERED: QUEtiapine FUMARATE 25 MG TAB PO (07:30)
[2017-10-14 07:51] LABS: BASO % 0.7 % (0.0-1.0); EOS # 0.1 10^3/uL (0.0-0.50); EOS % 2.2 % (0.0-3.0); HEMATOCRIT 35.2 % (36.0-47.0); HEMOGLOBIN 11.3 g/dl (12.0-15.5); IMMATURE GRANULOCYTE % 0.2 % (0-3.0); LYMPH # 1.7 10^3/uL (1.5-4.5); LYMPH % 43.4 % (24.0-44.0); MEAN CORPUSCULAR HEMOGLOBIN 29.7 pg (27.0-33.0); MEAN CORPUSCULAR HGB CONC 32.1 g/dl (32.0-36.5); MEAN CORPUSCULAR VOLUME 92.4 fl (80.0-96.0); MONO # 0.3 10^3/uL (0.0-0.8); MONO % 6.2 % (0.0-5.0); NEUTROPHILS # 1.9 10^3/uL (1.8-7.7); NEUTROPHILS % 47.3 % (36.0-66.0); PLATELET COUNT, AUTOMATED 210 10^3/uL (150-450); RED BLOOD COUNT 3.81 10^6/uL (4.00-5.40); RED CELL DISTRIBUTION WIDTH 15.6 % (11.5-14.5)
[2017-10-14 08:18] LABS: ANION GAP 6 MEQ/L (8-16); BLOOD UREA NITROGEN 2 MG/DL (7-18); CALCIUM LEVEL 7.9 MG/DL (8.5-10.1); CARBON DIOXIDE LEVEL 30 MEQ/L (21-32); CHLORIDE LEVEL 113 MEQ/L (98-107); CREATININE FOR GFR 0.68 MG/DL (0.55-1.30); GLOMERULAR FILTRATION RATE > 60.0 (>58); GLUCOSE, FASTING 129 MG/DL (70-100); POTASSIUM SERUM 3.7 MEQ/L (3.5-5.1); SODIUM LEVEL 149 MEQ/L (136-145)
[2017-10-14] MEDS: DULoxetine 30 MG CAP (CYMBALTA) PO (10:11)
[2017-10-14] MEDS: METHOCARBAMOL 500 MG TAB PO (10:12)
[2017-10-14] MEDS: busPIRone 10 MG TAB PO (10:12)
[2017-10-14] MEDS: GABAPENTIN 300 MG CAP PO (10:12)
[2017-10-14] MEDS ORDERED: QUEtiapine FUMARATE 100 MG TAB PO (21:00)
[2017-10-14] MEDS ORDERED: tiZANidine 4 MG TAB PO (21:00)
== END 2017-10-14 13:25 | disposition home or self-care (01) | DRG 812 ==
LOC: M ED INP 10-12 00:53 → M MS5PR 10-13 10:46 → M ICU 10-12 02:03 → M ED 18:32
PROC: 0DJ08ZZ Inspection of Upper Intestinal Tract, Via Natural or Artificial Opening Endoscopic (ICD-10-PCS; principal; 2017-10-13 10:37)
DX: T42.4X2A Poisoning by benzodiazepines, intentional self-harm, initial encounter (principal); G92 Toxic encephalopathy; E87.2 Acidosis; E16.0 Drug-induced hypoglycemia without coma; T40.5X2A Poisoning by cocaine, intentional self-harm, initial encounter; T40.2X2A Poisoning by other opioids, intentional self-harm, initial encounter; I10 Essential (primary) hypertension; Z79.899 Other long term (current) drug therapy; Z88.6 Allergy status to analgesic agent; Z88.8 Allergy status to other drugs, medicaments and biological substances; Z91.048 Other nonmedicinal substance allergy status; K12.39 Other oral mucositis (ulcerative); F32.9 Major depressive disorder, single episode, unspecified; T54.91XA Toxic effect of unspecified corrosive substance, accidental (unintentional), initial encounter; F43.10 Post-traumatic stress disorder, unspecified; F40.01 Agoraphobia with panic disorder; F60.3 Borderline personality disorder; F10.10 Alcohol abuse, uncomplicated; Z91.410 Personal history of adult physical and sexual abuse; Z98.84 Bariatric surgery status; Y92.039 Unspecified place in apartment as the place of occurrence of the external cause

== ENCOUNTER → 2017-12-24 | Outpatient (CLI) | payer OTHER | LOC: M PAIN 14:45 | DX: M79.18 Myalgia, other site (principal); M50.223 Other cervical disc displacement at C6-C7 level; M51.26 Other intervertebral disc displacement, lumbar region; F32.9 Major depressive disorder, single episode, unspecified; F43.10 Post-traumatic stress disorder, unspecified; F40.01 Agoraphobia with panic disorder; F11.20 Opioid dependence, uncomplicated; I95.1 Orthostatic hypotension; Z79.899 Other long term (current) drug therapy; Z88.6 Allergy status to analgesic agent; Z88.8 Allergy status to other drugs, medicaments and biological substances; Z91.09 Other allergy status, other than to drugs and biological substances; Z87.891 Personal history of nicotine dependence; Z98.84 Bariatric surgery status; Z91.5 Personal history of self-harm | CPT/HCPCS: G0463 ==

== ENCOUNTER → 2018-01-16 | Outpatient (CLI) | payer OTHER ==
[~2018-01-16] MED LIST changes: -ACET500C PO; -ACET50TAOT PO; -BUPIVACAINE HCL 0.25% 10 ML VIAL As Ordered ONE; +BUPIVACAINE HCL 0.25% 30 ML VIAL As Ordered; -BUPIVACAINE HCL 0.25% 30 ML VIAL As Ordered ONE; -BUSP10TA PO; -BUSP15TA47 PO; -CLONI1TA PO; -COLA50CA5 PO; -CYCL10TA PO; -CYMB60CA3 PO; -DYAZ37.5 PO; -EFFE75CA75 PO; -GABA-282 PO; -GABA600T PO; -HYDR25TAB PO; +ISOVUE-M 300 61% 15ML VIAL (Q9967) As Ordered; +LIDOCAINE 1% SDV INJ 30 ML VIAL As Ordered; -METH1TAB40 PO; -MIDO2.5T PO; -MIRA3350 PO; -MULTLIQ7 PO; -PRIM50TA6 PO; -PROT1TAB2 PO; -QUET1TAB8 PO; -QUET400T PO; -RIZA10TA2 PO; -SERO1TAB2 PO; -SERO1TAB3 PO; -SUBO4MIS SL; -SUBO8MIS SL; -TIZA4CAP3 PO; +TRIAMCINOLONE ACETONIDE SUSP 40 MG/ML VIAL (J3301) As Ordered; -TRIAMCINOLONE ACETONIDE SUSP 40 MG/ML VIAL (J3301) As Ordered ONE; -ULTR50TA8 PO; -ZANA4TAB PO; +diazePAM 5 MG TAB As Ordered; -diazePAM 5 MG TAB As Ordered ONE; +oxyCODONE 5MG TAB As Ordered; -oxyCODONE 5MG TAB As Ordered ONE
== END ==
LOC: M PAIN 11:15
DX: G89.29 Other chronic pain (principal); M46.1 Sacroiliitis, not elsewhere classified; M53.88 Other specified dorsopathies, sacral and sacrococcygeal region; F33.1 Major depressive disorder, recurrent, moderate; F40.01 Agoraphobia with panic disorder; F11.20 Opioid dependence, uncomplicated; I95.1 Orthostatic hypotension; E53.8 Deficiency of other specified B group vitamins; Z79.899 Other long term (current) drug therapy; Z88.6 Allergy status to analgesic agent; Z88.8 Allergy status to other drugs, medicaments and biological substances; Z91.09 Other allergy status, other than to drugs and biological substances; Z86.69 Personal history of other diseases of the nervous system and sense organs; Z91.5 Personal history of self-harm; Z98.84 Bariatric surgery status; Z87.891 Personal history of nicotine dependence
CPT/HCPCS: J3301

== ENCOUNTER → 2018-03-06 | Outpatient (CLI) | payer OTHER ==
[~2018-03-06] MED LIST changes: +ACET500C PO; +ACET500T15 PO; -BUPIVACAINE HCL 0.25% 30 ML VIAL As Ordered; +BUSP10TA PO; +BUSP15TA47 PO; +BUSP30TA PO; +CLONI1TA PO; +COLA50CA5 PO; +CYCL10TA PO; +CYMB60CA3 PO; +DYAZ37.5 PO; +EFFE75CA2 PO; +ERGO500014 PO; +FERR325T3 PO; +GABA-843 PO; +GABA600T4 PO; +HYDR25TAB PO; -ISOVUE-M 300 61% 15ML VIAL (Q9967) As Ordered; -LIDOCAINE 1% SDV INJ 30 ML VIAL As Ordered; +METH1TAB40 PO; +MIDO2.5T PO; +MIRA3350 PO; +MULTLIQ7 PO; +PRIM50TA6 PO; +PROT1TAB2 PO; +QUET1TAB10 PO; +QUET1TAB8 PO; +QUET400T PO; +REME30TA PO; +RIZA10TA2 PO; +SERO1TAB2 PO; +SERO1TAB3 PO; +SUBO4MIS SL; +SUBO8MIS SL; +TIZA4CAP PO; -TRIAMCINOLONE ACETONIDE SUSP 40 MG/ML VIAL (J3301) As Ordered; +ULTR50TA8 PO; +VALA1TAB2 PO; +VITA100072 PO; +VITA200028 PO; +ZANA4TAB PO; -diazePAM 5 MG TAB As Ordered; -oxyCODONE 5MG TAB As Ordered
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
== END ==
LOC: M PAIN 09:30
PROVIDERS: ATTEND Nurse Practitioner Family
DX: M54.81 Occipital neuralgia (principal); M50.20 Other cervical disc displacement, unspecified cervical region; M46.1 Sacroiliitis, not elsewhere classified; I95.1 Orthostatic hypotension; F32.9 Major depressive disorder, single episode, unspecified; F43.10 Post-traumatic stress disorder, unspecified; F40.01 Agoraphobia with panic disorder; F11.20 Opioid dependence, uncomplicated; Z79.899 Other long term (current) drug therapy; Z88.6 Allergy status to analgesic agent; Z88.8 Allergy status to other drugs, medicaments and biological substances; Z91.09 Other allergy status, other than to drugs and biological substances; Z87.891 Personal history of nicotine dependence; Z91.5 Personal history of self-harm; Z86.59 Personal history of other mental and behavioral disorders; Z98.84 Bariatric surgery status

== ENCOUNTER → 2018-04-08 | Outpatient (REF) | payer OTHER ==
[2018-04-08 16:17] LABS: ALBUMIN 3.5 GM/DL (3.2-5.2); ALT/SGPT 26 U/L (12-78); BILIRUBIN,TOTAL 0.3 MG/DL (0.2-1.0); BLOOD UREA NITROGEN 7 MG/DL (7-18); CALCIUM LEVEL 8.7 MG/DL (8.5-10.1); CARBON DIOXIDE LEVEL 32 MEQ/L (21-32); CHLORIDE LEVEL 105 MEQ/L (98-107); CREATININE FOR GFR 0.88 MG/DL (0.55-1.30); FERRITIN 97 NG/ML (8-252); GLOMERULAR FILTRATION RATE > 60.0 (>58); GLUCOSE, FASTING 82 MG/DL (70-100); IRON (FE) 168 UG/DL (50-170); PERCENT SATURATION 64.6 % (13.2-45.0); SODIUM LEVEL 139 MEQ/L (136-145); TOTAL IRON BINDING CAPACITY 260 UG/DL (250-450); TOTAL PROTEIN 6.4 GM/DL (6.4-8.2)
[2018-04-08 16:20] LABS: TOTAL 25(OH) VITAMIN D 44.2 NG/ML (30.0-100.0)
[2018-04-08 17:37] LABS: HEMATOCRIT 41.8 % (36.0-47.0); HEMOGLOBIN 13.3 g/dl (12.0-15.5); MEAN CORPUSCULAR HEMOGLOBIN 29.8 pg (27.0-33.0); MEAN CORPUSCULAR HGB CONC 31.8 g/dl (32.0-36.5); MEAN CORPUSCULAR VOLUME 93.7 fl (80.0-96.0); PLATELET COUNT, AUTOMATED 181 10^3/uL (150-450); RED BLOOD COUNT 4.46 10^6/uL (4.00-5.40); WHITE BLOOD COUNT 3.8 10^3/uL (4.0-10.0)
[2018-04-10 09:40] LABS: VITAMIN B12 LEVEL 335 PG/ML (232-1245)
== END ==
LOC: M SFHCPLAZ 14:02
PROVIDERS: ATTEND Nurse Practitioner Adult Health
DX: Z98.84 Bariatric surgery status (principal); D64.9 Anemia, unspecified; E53.8 Deficiency of other specified B group vitamins

== ENCOUNTER → 2018-05-09 | Outpatient (REF) | payer OTHER ==
[2018-05-09 21:40] LABS: CHLAMYDIA DNA AMPLIFICATION NEGATIVE (NEGATIVE); GC DNA AMPLIFICATION NEGATIVE (NEGATIVE)
[2018-05-14 00:06] LABS: HPV HYBRID CAPTURE II Positive (Negative)
== END ==
LOC: M LAB REF 17:11
PROVIDERS: ATTEND Obstetrics & Gynecology
DX: Z11.3 Encounter for screening for infections with a predominantly sexual mode of transmission (principal); Z12.4 Encounter for screening for malignant neoplasm of cervix

== ENCOUNTER 2018-05-12 13:13 | Emergency (ER) | payer OTHER ==
[~2018-05-12] VITALS: Ht 165.1 cm; Wt 50.0 kg
[2018-05-12 14:06] LABS: BASO % 0.5 % (0.0-1.0); EOS # 0.1 10^3/uL (0.0-0.50); EOS % 0.8 % (0.0-3.0); HEMOGLOBIN 12.7 g/dl (12.0-15.5); LYMPH # 1.3 10^3/uL (1.5-4.5); LYMPH % 22.2 % (24.0-44.0); MEAN CORPUSCULAR HEMOGLOBIN 29.8 pg (27.0-33.0); MEAN CORPUSCULAR HGB CONC 32.6 g/dl (32.0-36.5); MEAN CORPUSCULAR VOLUME 91.5 fl (80.0-96.0); MONO # 0.5 10^3/uL (0.0-0.8); MONO % 7.8 % (0.0-5.0); NEUTROPHILS % 68.4 % (36.0-66.0); PLATELET COUNT, AUTOMATED 179 10^3/uL (150-450); RED BLOOD COUNT 4.26 10^6/uL (4.00-5.40); WHITE BLOOD COUNT 5.9 10^3/uL (4.0-10.0)
[2018-05-12 14:25] LABS: HCG, SERUM QUALITATIVE NEGATIVE (NEGATIVE)
[2018-05-12] MEDS ORDERED: NS 1,000 ML IV ONE (14:30)
[2018-05-12] MEDS ORDERED: cefTRIAXone SOD 1 GM in D5W MINI-BAG PLUS 50 ML IV ONE (14:30)
[2018-05-12 14:37] LABS: ACETAMINOPHEN LEVEL < 2.0 UG/ML (10.0-30.0); ALBUMIN 3.6 GM/DL (3.2-5.2); ALT/SGPT 16 U/L (12-78); BILIRUBIN,DIRECT 0.1 MG/DL (0.0-0.2); BILIRUBIN,TOTAL 0.5 MG/DL (0.2-1.0); BLOOD UREA NITROGEN 9 MG/DL (7-18); CARBON DIOXIDE LEVEL 27 MEQ/L (21-32); CHLORIDE LEVEL 105 MEQ/L (98-107); CPK CREATINE PHOSPHOKINASE 344 U/L (26-192); CREATININE FOR GFR 1.16 MG/DL (0.55-1.30); ETHYL ALCOHOL (ETHANOL) < 0.003 % (0.000-0.010); GLOMERULAR FILTRATION RATE 53.8 (>58); GLUCOSE, FASTING 76 MG/DL (70-100); POTASSIUM SERUM 4.1 MEQ/L (3.5-5.1); SALICYLATE LEVEL < 1.7 MG/DL (5.0-30.0); SODIUM LEVEL 141 MEQ/L (136-145); TOTAL PROTEIN 6.3 GM/DL (6.4-8.2)
[2018-05-12 15:12] LABS: AMPHETAMINES LEVEL URINE POSITIVE (NEGATIVE); BARBITURATES URINE POSITIVE (NEGATIVE); BENZODIAZEPINES URINE NEGATIVE (NEGATIVE); CANNABINOIDS URINE POSITIVE (NEGATIVE); COCAINE METABOLITE URINE POSITIVE (NEGATIVE); METHADONE URINE NEGATIVE (NEGATIVE); OPIATES URINE NEGATIVE (NEGATIVE); PHENCYCLIDINE URINE NEGATIVE (NEGATIVE)
[2018-05-12] MEDS ORDERED: ACETAMINOPHEN 325 MG TAB PO ONE (17:00)
[2018-05-12 17:56] VITALS: BP 131/78
--- NOTE | 2018-05-12 19:57 | ECGEPIP ---
Stationary ECG Study [facility] - ED Test Date: 2018-05-12 Pat Name: GALEN PINEDA Department: Room: - Gender: F Bsa/Aml Compliance Officer: armond : 1970 Requested By: Ethan Mckinney Order Number: [id number] Reading MD: Ethan Mckinney Measurements Intervals Suring Rate: 109 P: 53 MT: 111 QRS: 64 QRSD: 82 T: 33 QT: 300 QTc: 404 Interpretive Statements SINUS TACHYCARDIA WITH SHORT MT INTERVAL NONSPECIFIC ST & T-WAVE ABNORMALITY ABNORMAL RHYTHM ECG LOW QS VOLTAGE LIMB LEADS CW 10/11/17 RATE INCREASED IMPROVED ANTEROSEPTAL ST T WAVE CHANGES Electronically Signed On 05-12-2018 19:57:08 EST by Ethan Mckinney
== END 2018-05-12 18:10 | disposition home or self-care (01) ==
LOC: M ED 13:13 → EDBD 13:13 → M ED 18:10
DX: F14.10 Cocaine abuse, uncomplicated (principal); F15.10 Other stimulant abuse, uncomplicated; F12.10 Cannabis abuse, uncomplicated; F13.10 Sedative, hypnotic or anxiolytic abuse, uncomplicated; H81.09 Meniere's disease, unspecified ear; F17.200 Nicotine dependence, unspecified, uncomplicated; Z98.84 Bariatric surgery status; Z91.048 Other nonmedicinal substance allergy status; Z88.8 Allergy status to other drugs, medicaments and biological substances; Z79.899 Other long term (current) drug therapy
CPT/HCPCS: 36415; 80048; 80076; 80307; 82550; 84443; 84703; 85025; 93005; 93041; 94760; 96365; 96366; 99285; G0480; J0696

== ENCOUNTER → 2018-08-07 | Outpatient (CLI) | payer OTHER ==
[~2018-08-07] MED LIST changes: -ERGO500014 PO; +VITA100018 PO; -VITA100072 PO; +VITA500045 PO
--- NOTE | 2018-08-19 03:03 | ECWPNPC ---
PATIENT NAME: GALEN PINEDA : 1970 GENDER: FEMALE VISIT DATE: 08/07/2018 DISCHARGE DATE: 08/07/18 1410 VISIT LOCKED DATE TIME: PHYSICIAN: MARIANO SAXENA RESOURCE: MARIANO SAXENA DISCLAIMER : THIS IS A VISIT SUMMARY EXTRACTED FROM THE [employer] CHART. IT IS NOT A COPY OF THE [employer] PROGRESS NOTE. ANUELD
== END ==
LOC: M PAIN 13:15
PROVIDERS: ATTEND Nurse Practitioner Family
DX: M47.897 Other spondylosis, lumbosacral region (principal); G89.29 Other chronic pain; G43.009 Migraine without aura, not intractable, without status migrainosus; Z98.84 Bariatric surgery status; Z86.59 Personal history of other mental and behavioral disorders; D50.9 Iron deficiency anemia, unspecified; Z87.891 Personal history of nicotine dependence; Z88.6 Allergy status to analgesic agent; Z88.8 Allergy status to other drugs, medicaments and biological substances; Z91.09 Other allergy status, other than to drugs and biological substances; Z79.899 Other long term (current) drug therapy

== ENCOUNTER → 2018-08-12 | Outpatient (REF) | payer OTHER | LOC: M LAB REF 15:19 | PROVIDERS: ATTEND Obstetrics & Gynecology | DX: R87.810 Cervical high risk human papillomavirus (HPV) DNA test positive (principal) ==

== ENCOUNTER → 2018-10-14 | Outpatient (CLI) | payer OTHER ==
[~2018-10-14] MED LIST changes: +BUPIVACAINE HCL 0.25% 30 ML VIAL As Ordered ONE; +ISOVUE-M 200 41% 20ML VIAL (Q9966) As Ordered ONE; +LIDOCAINE 1% SDV INJ 30 ML VIAL As Ordered ONE; -VALA1TAB2 PO; +VALA1TAB64 PO
--- NOTE | 2018-10-15 07:40 | REP ---
C-ARM VIEWS LUMBAR SPINE: CLINICAL HISTORY: Pain. Three C-arm views of the lower lumbar spine are performed during injection by Dr. Ball along the lower lumbar facet joints. [place] are seen along the lower lumbar facet joints. 62 seconds of fluoroscopy time utilized. Electronically Signed by Mehdi Quiñonez MD 10/16/2018 12:19 A
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
== END ==
LOC: M PAIN 11:30
PROVIDERS: ATTEND Anesthesiology
DX: M47.816 Spondylosis without myelopathy or radiculopathy, lumbar region (principal); M47.817 Spondylosis without myelopathy or radiculopathy, lumbosacral region; F32.9 Major depressive disorder, single episode, unspecified; Z98.84 Bariatric surgery status; F43.10 Post-traumatic stress disorder, unspecified; F41.9 Anxiety disorder, unspecified; F40.01 Agoraphobia with panic disorder; K59.09 Other constipation; I95.1 Orthostatic hypotension; E53.8 Deficiency of other specified B group vitamins; D50.9 Iron deficiency anemia, unspecified; Z87.891 Personal history of nicotine dependence; Z90.49 Acquired absence of other specified parts of digestive tract; Z79.899 Other long term (current) drug therapy; Z88.6 Allergy status to analgesic agent; Z88.8 Allergy status to other drugs, medicaments and biological substances; Z91.048 Other nonmedicinal substance allergy status
CPT/HCPCS: 64493; 64494; Q9966

== ENCOUNTER → 2018-10-29 | Outpatient (CLI) | payer OTHER ==
[~2018-10-29] MED LIST changes: -BUPIVACAINE HCL 0.25% 30 ML VIAL As Ordered ONE; -ISOVUE-M 200 41% 20ML VIAL (Q9966) As Ordered ONE; -LIDOCAINE 1% SDV INJ 30 ML VIAL As Ordered ONE; +VALA1TAB2 PO; -VALA1TAB64 PO
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
== END ==
LOC: M PAIN 13:45
PROVIDERS: ATTEND Family Medicine
DX: M51.17 Intervertebral disc disorders with radiculopathy, lumbosacral region (principal); Z98.84 Bariatric surgery status; Z86.59 Personal history of other mental and behavioral disorders; D50.9 Iron deficiency anemia, unspecified; Z87.891 Personal history of nicotine dependence; Z88.6 Allergy status to analgesic agent; Z88.8 Allergy status to other drugs, medicaments and biological substances; Z91.09 Other allergy status, other than to drugs and biological substances; Z79.899 Other long term (current) drug therapy

== ENCOUNTER → 2018-10-29 | Outpatient (CLI) | payer OTHER ==
--- NOTE | 2018-10-29 19:36 | REP ---
HISTORY: Severe low back pain. COMPARISON: 11/29/2015. Partial syndesmophyte formation is again seen on the right at L2-3, bilaterally at L3-4 and bilaterally at L4-5. This has increased slightly compared to the prior exam. Vertebral body height and alignment is unchanged. Once again, there is diffuse disc space narrowing at every level particularly posteriorly at L4-5 and L5-S1. L5 is partially sacralized. This is unchanged. The pedicles are again seen to be intact bilaterally. Degenerative facet joint changes are again seen at every level bilaterally, status quo. IMPRESSION: Chronic changes as described above. Electronically Signed by Efren Ruffin DO 10/30/2018 10:54 A
== END ==
LOC: M RAD 14:58
PROVIDERS: ATTEND Family Medicine
DX: M25.78 Osteophyte, vertebrae (principal); M51.36 Other intervertebral disc degeneration, lumbar region

== ENCOUNTER → 2018-10-31 | Outpatient (CLI) | payer OTHER ==
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
== END ==
LOC: M PAIN 13:00
PROVIDERS: ATTEND Family Medicine
DX: M50.13 Cervical disc disorder with radiculopathy, cervicothoracic region (principal); Z86.59 Personal history of other mental and behavioral disorders; Z98.84 Bariatric surgery status; D50.9 Iron deficiency anemia, unspecified; F17.290 Nicotine dependence, other tobacco product, uncomplicated; Z88.6 Allergy status to analgesic agent; Z88.8 Allergy status to other drugs, medicaments and biological substances; Z91.09 Other allergy status, other than to drugs and biological substances; Z79.899 Other long term (current) drug therapy

== ENCOUNTER → 2019-01-02 | Outpatient (CLI) | payer OTHER ==
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
== END ==
LOC: M PAIN 13:00
PROVIDERS: ATTEND Family Medicine
DX: M46.1 Sacroiliitis, not elsewhere classified (principal); G89.29 Other chronic pain; Z86.59 Personal history of other mental and behavioral disorders; D50.9 Iron deficiency anemia, unspecified; Z98.84 Bariatric surgery status; Z87.891 Personal history of nicotine dependence; Z88.6 Allergy status to analgesic agent; Z88.8 Allergy status to other drugs, medicaments and biological substances; Z79.899 Other long term (current) drug therapy

== ENCOUNTER → 2019-07-01 | Outpatient (CLI) | payer OTHER ==
[~2019-07-01] MED LIST changes: +CYCL-707 PO; -CYCL10TA PO; +QUET100T2 PO; -QUET1TAB8 PO; -VALA1TAB2 PO; +VALA1TAB5 PO
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
== END ==
LOC: M PAIN 10:15
PROVIDERS: ATTEND Family Medicine
DX: M50.13 Cervical disc disorder with radiculopathy, cervicothoracic region (principal); G43.009 Migraine without aura, not intractable, without status migrainosus; Z79.899 Other long term (current) drug therapy; Z87.891 Personal history of nicotine dependence; Z88.6 Allergy status to analgesic agent; Z88.8 Allergy status to other drugs, medicaments and biological substances; Z91.048 Other nonmedicinal substance allergy status; Z98.84 Bariatric surgery status

== ENCOUNTER → 2019-09-08 | Outpatient (CLI) | payer OTHER ==
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
== END ==
LOC: M PAIN 13:15
PROVIDERS: ATTEND Family Medicine
DX: M50.13 Cervical disc disorder with radiculopathy, cervicothoracic region (principal)

== ENCOUNTER → 2019-11-11 | Outpatient (CLI) | payer OTHER ==
[2019-11-11 15:16] LABS: HEMATOCRIT 44.1 % (36.0-47.0); HEMOGLOBIN 14.1 g/dl (12.0-15.5); MEAN CORPUSCULAR HEMOGLOBIN 29.2 pg (27.0-33.0); MEAN CORPUSCULAR VOLUME 91.3 fl (80.0-96.0); PLATELET COUNT, AUTOMATED 221 10^3/uL (150-450); RED BLOOD COUNT 4.83 10^6/uL (4.00-5.40); WHITE BLOOD COUNT 4.3 10^3/uL (4.0-10.0)
[2019-11-11 15:47] LABS: ALBUMIN 3.7 GM/DL (3.2-5.2); ALT/SGPT 18 U/L (12-78); BILIRUBIN,TOTAL 0.4 MG/DL (0.2-1.0); BLOOD UREA NITROGEN 8 MG/DL (7-18); CARBON DIOXIDE LEVEL 28 MEQ/L (21-32); CHLORIDE LEVEL 99 MEQ/L (98-107); CREATININE FOR GFR 0.94 MG/DL (0.55-1.30); FOLATE > 24.0 NG/ML (>5.4); GLOMERULAR FILTRATION RATE > 60.0 (>58); GLUCOSE, FASTING 78 MG/DL (70-100); IRON (FE) 182 UG/DL (50-170); PERCENT SATURATION 87.5 % (13.2-45.0); POTASSIUM SERUM 4.4 MEQ/L (3.5-5.1); SODIUM LEVEL 133 MEQ/L (136-145); TOTAL 25(OH) VITAMIN D 37.1 NG/ML (30.0-100.0); TOTAL IRON BINDING CAPACITY 208 UG/DL (250-450); TOTAL PROTEIN 6.6 GM/DL (6.4-8.2)
== END ==
LOC: M PLALAB 12:07
PROVIDERS: ATTEND Nurse Practitioner Adult Health
DX: D64.9 Anemia, unspecified (principal); F41.9 Anxiety disorder, unspecified; G25.0 Essential tremor; Z13.29 Encounter for screening for other suspected endocrine disorder; Z13.21 Encounter for screening for nutritional disorder; Z98.84 Bariatric surgery status

== ENCOUNTER → 2019-11-24 | Outpatient (CLI) | payer OTHER | LOC: M PAIN 14:34 | PROVIDERS: ATTEND Family Medicine | DX: M50.13 Cervical disc disorder with radiculopathy, cervicothoracic region (principal) ==

== ENCOUNTER → 2019-12-24 | Outpatient (CLI) | payer OTHER ==
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
== END ==
LOC: M PAIN 14:15
PROVIDERS: ATTEND Family Medicine
DX: M50.13 Cervical disc disorder with radiculopathy, cervicothoracic region (principal); G89.29 Other chronic pain; D50.9 Iron deficiency anemia, unspecified; F17.210 Nicotine dependence, cigarettes, uncomplicated; Z86.59 Personal history of other mental and behavioral disorders; Z98.84 Bariatric surgery status; Z88.6 Allergy status to analgesic agent; Z88.8 Allergy status to other drugs, medicaments and biological substances; Z91.09 Other allergy status, other than to drugs and biological substances; Z79.899 Other long term (current) drug therapy

== ENCOUNTER → 2020-05-31 | Outpatient (CLI) | payer OTHER ==
[~2020-05-31] MED LIST changes: +GABA-282 PO; -GABA-843 PO; +HYDR-3490 PO; -HYDR25TAB PO; +METH-1164 PO; -METH1TAB40 PO; +MIRT-60 PO; -QUET1TAB10 PO; +QUET300T2 PO; -REME30TA PO
--- NOTE | 2020-06-21 07:44 | ECWPNPC ---
PATIENT NAME: GALEN PINEDA : 1970 GENDER: FEMALE VISIT DATE: 05/31/2020 DISCHARGE DATE: 05/31/20 1512 VISIT LOCKED DATE TIME: PHYSICIAN: PREM ALANIS PHYSICIAN PAGER NO: ACTIVE RESOURCE: PREM ALANIS REASON FOR APPOINTMENT 1. NECK/BACK HISTORY OF PRESENT ILLNESS GENERAL: 50-YEAR-OLD FEMALE IN FOR CHRONIC PAIN FOLLOW-UP. SHE RATES HER PAIN CURRENTLY AT AN 8 OUT OF 10 AND DESCRIBES IT CONTINOUS, ACHING, AND BURNING. PATIENT FEELS THE MEDICATIONS ARE HELPFUL. FALL RISK SCREENING: SCREENING :NO FALLS IN THE PAST YEAR. PAIN SCREENING: PATIENT HAS A COMPLAINT OF ACUTE OR CHRONIC PAIN :YES LOCATION OF PAIN:RIGHT SHOULDER, LEFT SHOULDER, NECK, LOW BACK INTENSITY OF PAIN (SCALE OF 1 TO 10):8 WHAT DOES YOUR PAIN FEEL LIKE:CONTINOUS, ACHING, BURNING NURSING NOTE: -. PAIN CENTER INTAKE QUESTIONS: DO YOU HAVE A HISTORY OF MRSA? :NO DO YOU TAKE A BLOOD THINNERS? :NO DO YOU HAVE ANY BLEEDING DISORDERS? :NO ANY NEW NUMBNESS OR WEAKNESS IN YOUR LEGS OR ARMS? :NO ANY PACEMAKER,DEFIBRILLATOR, OR DORSAL COLUMN STIMULATOR? :NO DO YOU HAVE ANY RASHES OR OPEN SORES? :NO ARE YOU ALLERGIC TO IV DYE? :NO ARE YOU DIABETIC? :NO ANY NEW PROBLEMS WITH YOUR MEDICATIONS? :NO HAVE YOU RECEIVED A VACCINE IN THE PAST 30 DAYS? :NO DO YOU PLAN TO RECEIVE A VACCINE IN THE NEXT 21 DAYS? :NO DO YOU NEED ANY PRESCRIPTION? :NO DO YOU TAKE ANY IMMUNOSUPPRESSIVE MEDICATIONS? :NO DO YOU HAVE ANY KIDNEY OR LIVER DISEASE? :NO IS THERE A CHANCE YOU COULD BE ? :NO ARE YOU BREAST FEEDING? :NO CURRENT MEDICATIONS TAKING SUBOXONE 8-2 MG FILM 2 FILMS UNDER THE TONGUE AND ALLOW TO DISSOLVE SUBLINGUAL TWICE DAILY TAKING HYDROXYZINE HCL 25 MG TABLET 1 TABLET NEEDED ORALLY EVERY 4 HRS MDD=5 TAKING BUSPAR 30 MG TABLET 1 TABLET ORALLY BID TAKING SEROQUEL 300 MG TABLET 1 TABLET AT BEDTIME ORALLY ONCE A DAY TAKING CYMBALTA 60 MG CAPSULE DELAYED RELEASE PARTICLES 1 CAPSULE ORALLY TWICE DAILY TAKING FERROUS SULFATE 325 (65 FE) MG TABLET 1 TABLET ORALLY BID TAKING VALTREX 1 GM TABLET 2TABLET ORALLY Q 12 HR X 24 HRS AT SX OF ONSET OF COLD SORE TAKING TOPAMAX 50 MG TABLET 1 TABLET ORALLY DAILY TAKING PROTONIX 40 MG TABLET DELAYED RELEASE 1 TABLET ORALLY TWICE A DAY TAKING LIDOCAINE 4 % CREAM DIRECTED EXTERNALLY APPLY SMALL AMOUNT Q 6 HRS TO BASE OF HEAD/NECK, NOTES: CHANGED TO 3% TAKING METHOCARBAMOL 750 MG TABLET 1 TAB ORALLY THREE TIMES DAILY TAKING GABAPENTIN 800 MG TABLET 1 CAPSULE ORALLY THREE TIMES A DAY NOT-TAKING TIZANIDINE HCL 4 MG TABLET 1 TABLET NEEDED ORALLY THREE TIMES A DAY NOT-TAKING SEROQUEL 25 MG TABLET 2 TABLETS ORALLY QHS IF 300MG DOES NOT WORK NOT-TAKING NORTRIPTYLINE HCL 50 MG CAPSULE 1 CAPSULE ORALLY ONCE A DAY NOT-TAKING TRILEPTAL 150 MG TABLET 2 TABLETS ORALLY TWICE A DAY NOT-TAKING PRIMIDONE 50 MG TABLET 1 TAB(S) ORALLY TWICE DAILY NOT-TAKING LIDOCAINE 5 % OINTMENT 1 APPLICATION NEEDED EXTERNALLY THREE TIMES A DAY NOT-TAKING PROPRANOLOL HCL 10 MG TABLET 1 TABLET ORALLY ONCE A DAY NOT-TAKING ZOFRAN 4 MG TABLET 1 TABLET ORALLY ONCE A DAY/ NEEDED NOT-TAKING BUSPIRONE HCL 30 MG TABLET TAKE ONE TABLET BY MOUTH TWICE DAILY NOT-TAKING PROTONIX 40 MG TABLET 1 TABLET TWICE A DAY ORALLY 30 DAYS MEDICATION LIST REVIEWED AND RECONCILED WITH THE PATIENT ALLERGIES NO[ALLERGIES VERIFIED] REVIEW OF SYSTEMS CONSTITUTIONAL: ANY RECENT FEVER NO . CHILLS NO . WEIGHT CHANGE OF UNKNOWN REASONS NO . GASTROENTEROLOGY: NEW UNEXPLAINABLE CHANGES IN BOWEL CONTROL NO . CONSTIPATION NO . GENITOURINARY: ANY NEW CHANGE IN BLADDER CONTROL? NO . NEUROLOGY: NEW ONSET DIZZINESS OR NEUROLOGICAL CHANGES NOT MENTIONED NO . NEW NUMBNESS OR PAIN PATTERNS NOT MENTIONED AND PERTINENT TO TODAY'S VISIT NO . CARDIOLOGY: NEW CHEST PRESSURE NO . PATIENT DENIES NO . RESPIRATORY: UNEXPLAINABLE COUGH NO . NEW SHORTNESS OF BREATH NO . VITAL SIGNS WT 147.6 LBS, HT 65 IN, BMI 24.56 INDEX, BP 118/78 MM HG, HR 89 /MIN, RR 18 /MIN, TEMP 98.1 F, OXYGEN SAT % 96%, NA INITIALS SC 14:26. EXAMINATION GENERAL EXAMINATION: GENERALNO ACUTE DISTRESS, WELL NOURISHED AND HYDRATED. PSYCHAPPROPRIATE MOOD AND AFFECT . LUNGS:CLEAR TO AUSCULTATION BILATERALLY, NO WHEEZES, RHONCHI, RALES. HEART:NO MURMURS, REGULAR RATE AND RHYTHM. BACK:POINT TENDER ALONG LUMBAR SPINE, SURROUNDING SKIN SHOWS NO ERYTHEMA, ECCHYMOSIS, INCREASED WARMTH, AND/OR SKIN ERUPTIONS NOTED. POSITIVE MODIFIED SLR RIGHT SIDE . MUSCULOSKELETAL:NOTABLE WEAKNESS OF THE RIGHT LOWER EXTREMITY, LEFT LOWER EXTREMITY WITHIN NORMAL LIMITS . ASSESSMENTS CERVICAL DISC DISORDER WITH RADICULOPATHY, CERVICOTHORACIC REGION - M50.13 (PRIMARY), RISK: (NULL) INTERVERTEBRAL DISC DISORDERS WITH RADICULOPATHY, LUMBOSACRAL REGION - M51.17, RISK: (NULL) TREATMENT CERVICAL DISC DISORDER WITH RADICULOPATHY, CERVICOTHORACIC REGION REFILL LIDOCAINE CREAM, 4 %, DIRECTED, EXTERNALLY, APPLY SMALL AMOUNT Q 6 HRS TO BASE OF HEAD/NECK, 30 DAY(S), 3 TUBE, REFILLS 2, NOTES: CHANGED TO 3% REFILL METHOCARBAMOL TABLET, 750 MG, 1 TAB, ORALLY, THREE TIMES DAILY, 90 DAY(S), 270, REFILLS 2 INTERVERTEBRAL DISC DISORDERS WITH RADICULOPATHY, LUMBOSACRAL REGION NOTES: 42-YEAR-OLD FEMALE IN FOR CHRONIC PAIN FOLLOW-UP. GIVEN PRESENTING SYMPTOMS AND RESULTS OF PHYSICAL EXAMINATION RECOMMENDED LUMBAR EPIDURAL STEROID INJECTIONS WITH POSTPROCEDURAL FOLLOW-UP. PATIENT HAS EXPRESSED UNDERSTANDING OF AND WAS IN AGREEMENT WITH TREATMENT PLAN. GIVEN TIME TO ASK QUESTIONS AND EXPRESS CONCERNS. PROCEDURE CODES FA211 ESTABILISHED PATIENT [facility] FACILITY CHARGE DISPOSITION & COMMUNICATION FOLLOW UP POSTPROCEDURE (REASON: LUMBAR EPIDURAL STEROID INJECTION) ELECTRONICALLY SIGNED BY HANNAH FORD ON 06/20/2020 AT 08:24 AM EDT DISCLAIMER : THIS IS A VISIT SUMMARY EXTRACTED FROM THE [employer] CHART. IT IS NOT A COPY OF THE [employer] PROGRESS NOTE. DAVID
== END ==
LOC: M PAIN 14:15
PROVIDERS: ATTEND Family Medicine
DX: M50.13 Cervical disc disorder with radiculopathy, cervicothoracic region (principal); M51.17 Intervertebral disc disorders with radiculopathy, lumbosacral region; Z79.899 Other long term (current) drug therapy

== ENCOUNTER → 2020-12-16 | Outpatient (CLI) | payer OTHER ==
[~2020-12-16] MED LIST changes: -QUET400T PO; +QUET400T2 PO
== END ==
LOC: M PAIN 14:15
PROVIDERS: ATTEND Anesthesiology
DX: M51.16 Intervertebral disc disorders with radiculopathy, lumbar region (principal); M25.561 Pain in right knee; F32.9 Major depressive disorder, single episode, unspecified; F43.10 Post-traumatic stress disorder, unspecified; F40.01 Agoraphobia with panic disorder; Z87.891 Personal history of nicotine dependence; Z79.899 Other long term (current) drug therapy; Z98.84 Bariatric surgery status; Z88.6 Allergy status to analgesic agent; Z88.8 Allergy status to other drugs, medicaments and biological substances; Z91.048 Other nonmedicinal substance allergy status

== ENCOUNTER → 2021-08-02 | Outpatient (REF) ==
[~2021-08-02] MED LIST changes: -CYMB60CA3 PO; +CYMB60CA4 PO
== END ==
LOC: M PLAIMG 14:39
PROVIDERS: ATTEND Internal Medicine
DX: Z00.00 Encounter for general adult medical examination without abnormal findings (principal)